=== PATIENT | female | born 1945 | race Caucasian/White ===

== ENCOUNTER → 2024-06-19 13:52 | Outpatient (REF) | payer MEDICARE, OTHER, SELFPAY | LOC: RAD 13:52 | PROVIDERS: ATTENDING PHYSICIAN Physician Assistant; FAMILY PHYSICIAN Family Medicine | DX: I65.23 Occlusion and stenosis of bilateral carotid arteries (principal) | CPT/HCPCS: 93880 ==

== ENCOUNTER → 2024-07-27 09:16 | Outpatient (REF) | payer MEDICARE, OTHER, SELFPAY | LOC: HWRCS 09:16 | PROVIDERS: ATTENDING PHYSICIAN Nurse Practitioner Gerontology; FAMILY PHYSICIAN Family Medicine | DX: R00.2 Palpitations (principal) | CPT/HCPCS: 93306 ==

== ENCOUNTER → 2024-08-02 06:19 | Day surgery (SDC) | payer MEDICARE, OTHER, SELFPAY | LOC: GI 06:19 | PROVIDERS: ATTENDING PHYSICIAN Internal Medicine Gastroenterology | DX: D12.2 Benign neoplasm of ascending colon (principal); K63.5 Polyp of colon; K64.8 Other hemorrhoids; Q43.8 Other specified congenital malformations of intestine; Z86.010 Personal history of colon polyps | CPT/HCPCS: 45380; 88305 ==

== ENCOUNTER 2024-08-08 07:10 | Day surgery (SDC) | payer MEDICARE, OTHER, SELFPAY | END 2024-08-08 08:58 | disposition home or self-care (01) | LOC: CATH 07:10 | PROVIDERS: ATTENDING PHYSICIAN Internal Medicine; FAMILY PHYSICIAN Family Medicine; OTHER PHYSICIAN Internal Medicine Cardiovascular Disease | DX: I08.1 Rheumatic disorders of both mitral and tricuspid valves (principal); I10 Essential (primary) hypertension; E78.00 Pure hypercholesterolemia, unspecified; E03.9 Hypothyroidism, unspecified; Z79.82 Long term (current) use of aspirin; Z87.891 Personal history of nicotine dependence | CPT/HCPCS: 93312; 93320; 93325 ==

== ENCOUNTER 2024-09-20 10:36 | Day surgery (SDC) | payer MEDICARE, OTHER, SELFPAY ==
[2024-09-20] VITALS (9 sets, daily range): BP systolic 96–149; BP diastolic 54–90; BMI 26.4
[2024-09-20 12:52] LABS: ACT-LR - POC 277 Seconds (116-155)
--- NOTE | 2024-09-21 18:27 | ITS.CL.CATH ---
End Lathe Operator - Catheterization
Cardiac Catheterization
Procedure Report:
CARDIAC CATHETERIZATION REPORT
Date of Procedure: 09/20/24
Referring: Dr. Abdirahman Flores
Indication: severe mitral regurgitation
PROCEDURE:
1. Right heart catheterization.
2. Left heart catheterization.
3. Coronary angiography.
4. iFR of LAD
ACCESS:
6 [place] right radial artery.
5 [place] right antecubital vein.
CATHETERS:
1. 6 [place]
2. 6 [place] JL3.5
3. 6 [place] JR4.
4. 6 [place] XB3.5 guide
HEMODYNAMIC DATA
LV 15/10 (EDP 18) mmHg
AO 150/78 (mean 110) mmHg
RA 6 mmHg
RV 28/5 (EDP 8) mmHg
PA 33/11 (mean 20) mmHg
PCWP 10 mmHg
CO/CI 5.1/3.0 L/min/m2
PVR 2.0 Wood units
SVR 1637 dsc*-5
CORONARY ANGIOGRAPHY
Dominance: right
LM: large and normal
LAD: large vessel giving rise to a moderate caliber branching D1 and small D2. There are serial moderate stenoses in the proximal LAD that were interrogated by iFR/FFR.
LCx: moderate caliber vessel giving rise to two moderate caliber OM branches. There is mild non-obstructive disease.
RCA: large vessel giving rise to a moderate caliber RPDA, large RPL1, and small RPL2. There is mild non-obstructive disease.
iFR/FFR of LAD
iFR was performed of the mid-LAD with an Omni pressure wire through a XB3.5 guide catheter. iFR was was borderline at 0.89 with normalization to 1.0 on pullback. FFR was then performed and was negative (0.86) with normalization to 1.0 on pullback.
Thus, the lesion was determined to be physiologically non-significant.
Closure Device: TR band
Radiation dose (mGy): 274.45
DAP (cm2.Gy): 17.28
Fluoroscopy time (minutes): 7.2
CONCLUSIONS:
1. Stable single vessel coronary artery disease in a right dominant system with FFR negative proximal LAD (FFR=0.86, unchanged from 2009)
2. Normal biventricular filling pressures, normal pulmonary artery pressure, normal cardiac output, and no aortic stenosis
RECOMMENDATIONS:
1. Expectant management after cardiac catheterization via right approach.
2. Proceed with surgical MRV without need for coronary revascularization. Should LAD revascularization be needed in the future this could be accomplished percutaneously.
Copy to: Abdirahman Flores MD
Signed: Sudhir Evans MD, PhD
== END 2024-09-20 17:00 | disposition home or self-care (01) ==
LOC: CATH 10:36
PROVIDERS: ATTENDING PHYSICIAN Student in an Organized Health Care Education/Training Program; FAMILY PHYSICIAN Family Medicine; OTHER PHYSICIAN Internal Medicine
DX: I25.10 Atherosclerotic heart disease of native coronary artery without angina pectoris (principal); Z79.82 Long term (current) use of aspirin; Z79.890 Hormone replacement therapy; Z79.899 Other long term (current) drug therapy; I34.0 Nonrheumatic mitral (valve) insufficiency; I10 Essential (primary) hypertension; R73.03 Prediabetes
CPT/HCPCS: 93799; 85347; 93460; C1769; C1887; C1894; J0153; Q9967

== ENCOUNTER → 2024-09-28 07:50 | Outpatient (REF) | payer MEDICARE, OTHER, SELFPAY | LOC: HWRAD 07:50 | PROVIDERS: ATTENDING PHYSICIAN Thoracic Surgery (Cardiothoracic Vascular Surgery); FAMILY PHYSICIAN Family Medicine | DX: I34.0 Nonrheumatic mitral (valve) insufficiency (principal); Z01.810 Encounter for preprocedural cardiovascular examination | CPT/HCPCS: 71275; 74174; Q9967 ==

== ENCOUNTER 2024-10-16 04:52 | Inpatient (IN) | payer MEDICARE, OTHER, SELFPAY ==
[2024-09-17 08:29] VITALS: BMI 24.9
[2024-09-17 09:07] LABS: % Eosinophils 5.4 % (0-6); % Immature Granulocytes 0.3 % (0-0.5); % Lymphocytes 37.8 % (20.5-51.1); % Monocytes 11.4 % (1.7-9.3); % Neutrophils 44.1 % (42.2-75.2); Absolute Basophils 0.1 10^3/uL (0-0.2); Absolute Eosinophils 0.3 10^3/uL (0-0.7); Absolute Lymphocytes 2.2 10^3/uL (1.2-3.4); Absolute Monocytes 0.7 10^3/uL (0.1-0.6); Absolute Neutrophils 2.6 10^3/uL (1.4-6.5); Hematocrit 40.5 % (37.0-47.0); Hemoglobin 13.5 g/dL (12.0-16.0); Mean Corp Hgb Conc. 33.3 g/dL (33.0-37.0); Mean Corpuscular Hgb 30.5 pg (27.0-31.0); Mean Corpuscular Volume 91.4 fL (81.0-99.0); Mean Platelet Volume 9.8 fL (7.4-10.4); Nucleated Red Blood Cells % 0 %; Platelet Count 222 10^3/uL (130-400); Red Blood Cell Count 4.43 10^6/uL (4.20-5.40); White Blood Cell Count 5.9 10^3/uL (4.8-10.8)
[2024-09-17 09:08] LABS: INR 1.01; PT 13.1 Sec (11.4-14.6)
[2024-09-17 09:09] LABS: APTT 29.5 Sec (23.4-35.0)
[2024-09-17 09:17] LABS: ALT (SGPT) 24 U/L (0-35); AST (SGOT) 31 U/L (14-36); Albumin 4.2 g/dl (3.5-5.0); Alkaline Phosphatase 100 U/L (38-126); Blood Urea Nitrogen 23 mg/dl (7-17); Calcium 10.7 mg/dl (8.4-10.2); Carbon Dioxide 29 mmol/L (22-30); Chloride 102 mmol/L (98-107); Direct Bilirubin 0.1 mg/dl (0.0-0.4); Estimated Creatinine Clearance 46 ml/min; Glucose 109 mg/dl (70-99); Potassium 4.5 mmol/L (3.5-5.1); Sodium 141 mmol/L (135-145); Total Bilirubin 0.6 mg/dl (0.2-1.3); Total Protein 6.8 g/dl (6.3-8.2); eGFR > 60.00
[2024-09-17 10:06] LABS: Glycohemoglobin (HgbA1c) 5.7 % (4.0-5.6)
--- NOTE | 2024-09-17 10:14 | CM ---
Met with and Mrs. Kumar in [facility]. She states prior to admission she resides with her spouse in a two story home with one step to enter. She states she has a full flight of steps to get to bedroom/full bathroom. She states she has a powder
room on the first floor. She states prior to admission she was independent with ambulation and adls. She states she does not have any DME in the home. She states she has a prescription plan. She states her spouse will be home to assist in her care
if needed. The discharge plan is to return home with her spouse when medically stable.
We reviewed pre-op and post-op routines. We reviewed the shower instructions. She has the soap, written instructions and the Cardiothoracic Surgery Educational Booklet. We also reviewed restrictions including driving and lifting restrictions. We
discussed a home visit by the Transitional Care Nurse. She is agreeable to a home visit. The plan is for [facility] Repair on 10/16/2024.
[2024-09-17 10:30] LABS: Urine Albumin Negative (Neg - Trace); Urine Bilirubin Negative (Negative); Urine Character Clear (Clear); Urine Color Yellow; Urine Glucose Negative (Negative); Urine Ketone Negative (Negative); Urine Leukocyte Negative (Negative); Urine Nitrite Negative (Negative); Urine Occult Blood Negative (Negative); Urine Specific Gravity 1.015 (<1.030); Urine Urobilinogen Negative (Neg - 1+)
[2024-10-16] VITALS (14 sets, daily range): BP systolic 90–169; BP diastolic 55–85; BMI 24.3
[2024-10-16] MEDS: BACTROBAN 2% OINTMENT 1 APPLIC NASAL ×2 (05:19→20:15)
[2024-10-16] MEDS: LOPRESSOR 25 MG PO (05:19)
[2024-10-16] MEDS: PROTONIX 40 MG PO (05:20)
[2024-10-16] MEDS: MAGNESIUM OXIDE 500 MG PO (05:20)
--- NOTE | 2024-10-16 06:19 | PTCARENOTE ---
Patient escorted onto unit at 0450. Endorsed feelings of anxiety; questions encouraged, therapeutic communication utilized to attempt to assuage concerns. Patient AOx3, VS as listed in the chart, height and weight obtained, patient changed into gown
and surgical sites clipped. Patient washed with CHG wipes and settled in bed. Medications reconciled in chart, allergies confirmed. Family at bedside, call aggarwal within reach. Awaiting CVOR call.
--- NOTE | 2024-10-16 07:08 | W.CVOR.SURPR ---
CVOR Surgeon Immed Pre Op
-
I have examined this patient prior to performance of the scheduled procedure.
The patient's condition is unchanged from the time of the dictated/written History and
Physical and the patient is able to undergo the scheduled procedure.
MV Repair +/- LITO Clip
[2024-10-16 07:17] LABS: ACT+ - POC 98 Seconds (82-134)
[2024-10-16 08:12] LABS: Urine Albumin Negative (Neg - Trace); Urine Bilirubin Negative (Negative); Urine Character Clear (Clear); Urine Color Yellow; Urine Glucose Negative (Negative); Urine Ketone Negative (Negative); Urine Leukocyte Negative (Negative); Urine Nitrite Negative (Negative); Urine Occult Blood Negative (Negative); Urine Urobilinogen Negative (Neg - 1+)
[2024-10-16 09:05] LABS: ACT+ - POC 834 Seconds (82-134)
[2024-10-16 09:29] LABS: B.E. - POC 1.8 mmol/L; Glucose - POC 128 mg/dl (70-99); HCO3 - POC 30 mmol/L (21-28); Hematocrit - POC 37 % PCV (37-47); Hemodilution- POC Yes; Hemoglobin Calculated - POC 12.4; Ionized Calcium - POC 1.38 mmol/L (1.15-1.33); O2 Saturation %Calculated-POC 99.9 % (94-98); PCO2 - POC 62 mmHg (35-48); PO2 - POC 307 mmHg (83-108); POC Comment PRE; Potassium - POC 4.2 mmol/L (3.5-5.1); Sodium - POC 142 mmol/L (136-145); pH - POC 7.29 (7.35-7.45)
[2024-10-16 10:00] LABS: B.E. - POC 3.9 mmol/L; Glucose - POC 129 mg/dl (70-99); HCO3 - POC 30 mmol/L (21-28); Hematocrit - POC 28 % PCV (37-47); Hemodilution- POC Yes; Hemoglobin Calculated - POC 9.6; Ionized Calcium - POC 1.08 mmol/L (1.15-1.33); O2 Saturation %Calculated-POC 99.9 % (94-98); PCO2 - POC 49 mmHg (35-48); PO2 - POC 331 mmHg (83-108); POC Comment CPB; Potassium - POC 5.1 mmol/L (3.5-5.1); Sodium - POC 139 mmol/L (136-145); pH - POC 7.39 (7.35-7.45)
[2024-10-16 10:16] LABS: ACT+ - POC 837 Seconds (82-134)
[2024-10-16 10:19] LABS: B.E. - POC 3.1 mmol/L; Glucose - POC 165 mg/dl (70-99); HCO3 - POC 28 mmol/L (21-28); Hematocrit - POC 31 % PCV (37-47); Hemodilution- POC Yes; Hemoglobin Calculated - POC 10.5; Ionized Calcium - POC 1.17 mmol/L (1.15-1.33); O2 Saturation %Calculated-POC 99.8 % (94-98); PCO2 - POC 46 mmHg (35-48); PO2 - POC 251 mmHg (83-108); POC Comment CPB; Potassium - POC 4.5 mmol/L (3.5-5.1); Sodium - POC 141 mmol/L (136-145)
[2024-10-16 10:32] LABS: ACT+ - POC 725 Seconds (82-134)
[2024-10-16 10:55] LABS: B.E. - POC 1.1 mmol/L; Glucose - POC 163 mg/dl (70-99); HCO3 - POC 25 mmol/L (21-28); Hematocrit - POC 33 % PCV (37-47); Hemodilution- POC Yes; Hemoglobin Calculated - POC 11.2; Ionized Calcium - POC 1.16 mmol/L (1.15-1.33); O2 Saturation %Calculated-POC 99.9 % (94-98); PCO2 - POC 34 mmHg (35-48); PO2 - POC 328 mmHg (83-108); POC Comment WARM; Potassium - POC 3.7 mmol/L (3.5-5.1); Sodium - POC 143 mmol/L (136-145); pH - POC 7.47 (7.35-7.45)
[2024-10-16 11:01] LABS: B.E. - POC -0.4 mmol/L; Glucose - POC 97 mg/dl (70-99); HCO3 - POC 24 mmol/L (21-28); Hematocrit - POC 31 % PCV (37-47); Hemodilution- POC Yes; Hemoglobin Calculated - POC 10.4; Ionized Calcium - POC 1.48 mmol/L (1.15-1.33); O2 Saturation %Calculated-POC 99.5 % (94-98); PCO2 - POC 36 mmHg (35-48); PO2 - POC 162 mmHg (83-108); Potassium - POC 3.1 mmol/L (3.5-5.1); Sodium - POC 144 mmol/L (136-145); pH - POC 7.43 (7.35-7.45)
[2024-10-16 11:01] LABS: ACT+ - POC 129 Seconds (82-134)
[2024-10-16 11:05] LABS: B.E. - POC -0.2 mmol/L; Glucose - POC 93 mg/dl (70-99); HCO3 - POC 24 mmol/L (21-28); Hematocrit - POC 30 % PCV (37-47); Hemodilution- POC Yes; Hemoglobin Calculated - POC 10.3; Ionized Calcium - POC 1.43 mmol/L (1.15-1.33); O2 Saturation %Calculated-POC 99.6 % (94-98); PCO2 - POC 35 mmHg (35-48); PO2 - POC 168 mmHg (83-108); POC Comment POST; Potassium - POC 3.1 mmol/L (3.5-5.1); Sodium - POC 145 mmol/L (136-145); pH - POC 7.44 (7.35-7.45)
--- NOTE | 2024-10-16 11:39 | W.PN.CT.SURG ---
Addendum entered and electronically signed by Abdirahman Flores MD 10/16/24 12:26:
Procedure(s) Performed:
1. Right mini thoracotomy with percutaneous ultrasound-guided right common femoral artery and vein cannulation under MECHELLE guidance
2. Radical mitral valve repair (32 mm ring annuloplasty, reapproximation of A2 onto A3 with free margin plication using 5-0 Prolene)
3. Placement temporary ventricular pacing wires
4. Trans esophageal echocardiography
5. Left femoral cut down, aborted use of this groin
6. Left atrial appendage exclusion (35mm clip)
Original Note:
CT Surgery Operative Note
-
CARDIAC SURGERY OPERATIVE REPORT
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
Postoperative Diagnosis: Same, large cleft between A2 A3, almost a trileaflet configuration and dilated annulus
Procedure(s) Performed:
1. Right mini thoracotomy with percutaneous ultrasound-guided right common femoral artery and vein cannulation under MECHELLE guidance
2. Radical mitral valve repair (32 mm ring annuloplasty, reapproximation of A2 onto A3 with free margin plication using 5-0 Prolene)
3. Placement temporary ventricular pacing wires
4. Trans esophageal echocardiography
5. Left femoral cut down, aborted use of this groin
Date of Surgery: 10/16/24
Comorbidities:
1. 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
2. Hyperlipidemia
3. Hypothyroidism
4. History of constipation
5. History of malignant melanoma on the right toe
6. Lymphedema
7. History of carotid stenosis
8. hypertension
9. Single-vessel CAD, stable
10. Osteopenia
11. Palpitations
Attending Surgeon: Abdirahman Flores MD, MS
Assistants: Alexandro Ghosh PA-C (present and necessary for retraction, suctioning, exposure, suture management, wound closure, etc. under my direction)
Anesthesiology: De Ventura MD and Malik Olvera CRNA
Scrub and Circulating RNs: Garret Sullivan RN, Meera Joyce RN
Assistant Associate Full Professor: Tammy Starr CCP
Anesthesia: GETA
EBL: per perfusion records
Products: None
CPB Time: 88 minutes
Aortic Cross Clamp Time: 64 minutes
Indication(s) for Procedures: This is a 78-year-old female with severe mitral valve insufficiency past progressed over the years. She now has become symptomatic with intermittent palpitations and occasional lightheadedness. She was otherwise
active and totally independent. Left heart cath demonstrated stable single-vessel CAD at the proximal to mid LAD not out of bifurcation. Given her subtle symptoms and new onset palpitations, I believe she met stage C symptomatology and therefore
met a class II a bordering class I indication for mitral valve repair. Given her history of palpitations, she wore a Holter monitor which did not demonstrate any atrial relation. Due to this, I opted to ligate her left atrial appendage if it was
easily visible during her surgery.
Mitral Valve Description: Abnormal appearing mitral valve, short anterior leaflet, long posterior leaflet. Large cleft between A2 and A3 with almost a trileaflet configuration of the valve. Annulus was dilated in the AP and trigone trigonal
dimensions. There is evidence of bileaflet prolapse and splaying of the leaflets.
Implants:
1. 32 mm Álvarez annuloplasty ring, SN [id number]
2. Percutaneous closure of the groin using Perclose x 2, SN [id number]
3. Left atrial appendage exclusion with a 35 mm clip, serial #[id number]
Specimen:
1. None
Findings: Her left ventricular ejection fraction preoperatively was 60 to 65%. Following surgery her EF remained the same at 60 to 65% with no new regional wall motion abnormalities. I initially attempted to cut down on the left groin however her
tissue was extremely friable and after placement of pursestring sutures, there was an adventitial hematoma. After decompressing it, and attempting to place a wire, the wire would not thread easily and so I aborted using this groin. Ultrasound and
micropuncture using Seldinger technique was used to access the right common femoral artery and vein. A 5 [place] sheath was placed into the right common femoral vein and 2 Perclose devices were used after dilating the tract to 8 [place] for the
common femoral artery. Her mitral valve was abnormal in appearance with almost a trileaflet configuration. There is bileaflet prolapse with a large cleft between A2 and A3. The annulus was dilated. Corresponding to the preoperative MECHELLE, her
anterior leaflet was quite short with a very tall posterior leaflet. I reapproximated a 2 onto a 3 using multiple interrupted 5-0 Prolene sutures. I then plicated to free margin in order to promote a downward parachuting effect. A total of 12
nonpledgeted 2 Ethibond sutures were placed circumferentially around the valve which was then sized to a 32 mm ring. This was secured with core knots. Dynamic inflation of the left ventricle with pressurization of the root demonstrated a competent
mitral valve. Ink test of the coaptation margin demonstrated a relatively posterior coaptation line in appropriate height. After coming off cardiopulmonary bypass, there is no residual mitral valve deficiency, may be trace in some views. There is
no systolic anterior motion the leaflets and a mean gradient of 2 across the valve. She did not require any blood products or inotropic support. She regained sinus rhythm after short period of ventricular pacing. There was some difficulty with
intubation using a double-lumen tube and positioning of it. Due to this, we elected to leave her intubated following surgery in the event that there was any swelling of her airway. Her left atrial appendage was verified to be free of any thrombus
or debris preoperatively and found to be totally occlusive postoperatively.
Description of Procedure: The patient was brought to the operating room and placed supine in the table with their right side bumped up and right arm down. Arterial and central access was performed by anesthesiology. The patient was prepped from chin
to toes in the typical sterile fashion. Trans esophageal evaluation of cardiac function and all valvular structures was conducted. Before commencing, a time out was performed by all members of the team. All were in agreement with the procedure and
laterality and I proceeded. A small left groin incision was made to expose the common femoral artery however this was aborted. Next ultrasound was used to access the right common femoral vessels using Seldinger technique with a micropuncture. I
placed a 5 [place] sheath into the common femoral vein and then to Perclose devices of the right common femoral artery after dilating with an 8 [place] sheath. A total of 35,000 units of heparin was given. A 5-6 cm right lateral thoracotomy was
performed over the 4th intercostal space verified by visualization of the hilum. The common femoral artery and vein were cannulated under transesophageal guidance using Seldinger technique and serial dilations. The arterial line was verified to have
an appropriate bounce and pressure correlating with testing. Once the ACT was above 400, retrograde autologous priming was done and we commenced cardiopulmonary bypass. Target core temperature was 34�C.
Carbon dioxide was used to flood the field. The course of the phrenic nerve was identified to prevent injury. The pericardium was opened and two stay sutures were placed to facilitate a ``pericardial table.�� The oblique sinus was developed followed
by the inter atrial groove. An antegrade root vent was inserted and secured with a pursestring suture. The pump flow and mean arterial pressure were lowered and an aortic cross clamp was applied to the ascending aorta. A total of 1.2L initial dose
of Antegrade cardioplegia was delivered. We had rapid electro myocardial quiescence at 300 cc of cardioplegia. The ventricle was monitored for distension by echocardiogram during this time. The left atrium was incised and enlarged. A left atrial
lift retractor was placed. The mitral valve was inspected. The mitral valve was repaired as described above. The left atrial lift was then removed and the left atrial appendage was accessed via the transverse sinus. This was sized to a 35 mm clip
which was deployed flush to the base. The left atriotomy was closed with 3-0 prolene in a running fashion leaving a ventricular vent in place to de-air. After filling the heart, the vent was removed and the prolene was secured with a corknot.
Unipolar ventricular pacing wire was placed on the base of the right ventricle. The patient was placed into Trendelenburg position and pump flows were lowered. The clamp was slowly removed with the root vent turned on. De-airing maneuvers were
performed. We started to rewarm with a target of 36.5�C.
As the heart recovered, the mitral valve and ventricular function were assessed under transesophageal echocardiogram. The root vents were removed. Once weaning parameters were satisfactory, cardiopulmonary bypass flow was lowered until we were off
cardiopulmonary bypass the mitral valve was inspected again. All surgical sites were inspected for hemostasis and appeared appropriate. The lines were clamped and the arterial was relocated to the venous cannula to give back volume. A test dose of
protamine was delivered and patient was monitored for any adverse reactions followed by complete protamine dosing. The femoral vessels were decannulated and the Perclose was snugged down on the arterial side and a large skin stitch was placed over
the femoral venous side. The pericardium was approximated with 2-0 ethibond sutures secured with corknots. One 19F Az drain remained in the pleural space and threaded into the pericardium. There was an excellent palpable distal to the 911 DISPATCHER
cannulation site and bilateral DP pulses on her feet. Local analgesia was injected to the thoracotomy. The incision was closed in layers in a running fashion.
All instrument, sponge, and needle counts were confirmed to be correct x 2 at the end of the operation. The patient was transferred to the cardiac intensive care unit in critical but stable condition.
I, Dr. Abdirahman Flores, was present, scrubbed for, and performed all critical elements of this procedure.
Abdirahman Flores MD, MS
Cardiothoracic Surgeon
[facility]
This dictation was created using the [employer] dictation system. Please excuse any grammatical, typographical, or 'sound alike' errors
--- NOTE | 2024-10-16 11:40 | CON.INTV ---
Consultation
Consultation Request
Date/Time Consultation Requested: 10/16/2020 4-12 noon
Date/Time Consultation Performed: 10/16/2024-12:30 PM
Requesting Provider: Cardiovascular surgery
Performing Provider: Dr. Nagel
Reason for Consultation: Postoperative ventilator/critical care management
Medical History
-
Chief Complaint: Mitral regurgitation
History of Present Illness:
78-year-old female with a history of hyperlipidemia, hypothyroid, lymphedema, hypertension and stable single-vessel CAD who had myxomatous mitral valve degeneration with severe insufficiency and underwent radical mitral valve repair-barrel turner
consulted for postoperative ventilator/critical care management 10/16/2024. The patient is intubated and review of systems is unobtainable. Operative records were reviewed. No blood products were needed. Patient is not on any pressors.
Past Medical History
Past Medical History: None (Hypertension. Hyperlipoidemia. Hypothyroid. Constipation. Malignant melanoma. HIT-nciuxz-jrpuph. Severe mitral insufficiency. Osteopenia. Diverticulosis. Prediabetes. Anxiety.)
Past Surgical History: None (Right great toe amputation for melanoma 2004. Oophorectomy 2002. Right lower extremity vein stripping 2021. Right carotid endarterectomy 2017. Bilateral cataract 2017. Blepharoplasty 2018.)
Social History
Tobacco: Former Smoker
Alcohol: Occasional
Drug: None
Personal:
Living: With Family
Employment: Retired
Occupational Exposures: No known asbestos exposure
Environmental Exposures: No known tuberculosis exposure
Family History
Family History: Other (Father-CAD. Mother-CAD. Brother-CVA.)
Allergies / Home Medications
Allergies
Allergy/AdvReac Type Severity Reaction Status Date / Time
adhesive Allergy ERYTHEMA/RA Verified 09/20/24 10:53
SH/ITCHING
Home Medications
�Medication �Instructions �Recorded �Confirmed �Last Taken �Type
levothyroxine 112 mcg tablet 112 mcg PO DAILY 12/09/17 10/16/24 10/15/24 08:00 History
aspirin 81 mg tablet,delayed 81 mg PO DAILY ##0 12/15/17 10/16/24 10/15/24 08:00 Rx
release
alprazolam 0.5 mg tablet 0.25 mg PO Q8H PRN flying 08/08/24 09/20/24 3 Months Ago History
~05/08/24
olmesartan 20 mg tablet 20 mg PO DAILY 08/08/24 10/16/24 10/13/24 08:00 History
acetaminophen 500 mg tablet 500 mg PO Q6H PRN pain 09/12/24 09/20/24 Unknown History
atorvastatin 40 mg tablet 40 mg PO HS 09/12/24 10/16/24 10/15/24 20:00 History
calcium carbonate 1,000 mg PO HS 09/12/24 10/16/24 10/15/24 20:00 History
omeprazole 20 mg tablet,delayed 20 mg PO HS 09/12/24 10/16/24 10/15/24 18:30 History
release
melatonin 5 mg sublingual tablet 5 mg sublingual HS PRN insomnia 09/20/24 10/16/24 10/15/24 21:30 History
Review of Systems
-
Unable to Obtain full review of systems at this time due to: Other (Per HPI)
Vitals / Labs / Diagnostic Testing
Vital Signs
Pulse BP Pulse Ox
90 149/82 96
10/16/24 05:19 10/16/24 05:19 10/16/24 05:00
Diagnostic Testing:
Physical Exam
-
Exam:
Well-nourished and well-developed in no apparent distress
HEENT-atraumatic, normocephalic, oral tracheal intubation
Heart-regular rate and rhythm-no murmurs, rubs or gallops
Chest-clear to auscultation, no wheezes, crackles, median sternotomy bandage is not removed
Abdomen soft nondistended
Extremities-no cyanosis, clubbing, edema and good peripheral pulses
Integument-intact, no rashes, lesions or ecchymosis
Neurologically not alert, not oriented, not moving any of his extremities sedated on a ventilator
Assessment
-
78-year-old female with a history of hyperlipidemia, hypothyroid, lymphedema, hypertension and stable single-vessel CAD who had myxomatous mitral valve degeneration with severe insufficiency and underwent radical mitral valve repair-barrel turner
consulted for postoperative ventilator/critical care management 10/16/2024.
Severe mitral insufficiency symptomatic
Status post right minithoracotomy, radical mitral valve repair-Dr. Flores 10/16/2024
Mild anemia
Mild hyperglycemia
Conditions present prior to admission:
Hypertension.
Hyperlipoidemia.
Hypothyroid.
Constipation.
Malignant melanoma.
NEL-gyqrae-wnjxsu.
Severe mitral insufficiency.
Osteopenia.
Diverticulosis.
Prediabetes.
Anxiety.
Right great toe amputation for melanoma 2004. Oophorectomy 2002. Right lower extremity vein stripping 2021. Right carotid endarterectomy 2017. Bilateral cataract 2018. Blepharoplasty 2019.
Plan
Ventilator settings reviewed
FiO2 will be weaned
Minute ventilation will be adjusted
Arterial blood gases will be monitored
Spontaneous breathing trial will be attempted with hopeful extubation after anesthesia/sedation wear off
Pulmonary artery catheter parameters will be followed
Pressors/antihypertensive/inotropes/diuretics will be provided as needed
Monitor chest tube output
Monitor hemoglobin
Monitor platelet count and coags
Transfuse blood product if needed
CT surgery following chest tubes
Monitor blood sugar
Insulin drip per protocol
Aspiration precautions
VAP prevention protocol
DVT prophylaxis
Early nutrition
Early mobilization
Critical care statement: A total of 50 minutes of critical care time was provided for this patient today. This includes management of ventilator, spontaneous breathing trial, arterial blood gases, pressors, of unstable vital signs, evaluation of the
patient at bedside, reviewing the patient's pertinent medical records including radiographs, microbiology, laboratory evaluations, and discussion with primary team and critical care nursing.
Diagnostic data:
Chest x-ray 10/16/2024-no pneumothorax, mild bibasilar opacifications compatible with subsegmental atelectasis
Cardiac catheterization 09/16/2024-stable single-vessel CAD, known normal biventricular filling pressures, normal cardiac output and no aortic stenosis
Transesophageal echocardiogram 10/16/2024-moderate mitral regurgitation, no thrombus or mass
Data Reviewed
-
PFT: Report reviewed by me
EKG: Report reviewed by me
Radiology: Report reviewed by me
Medical Tests (Nuc Med, Echo etc): Report reviewed by me
Labs: Labs reviewed by me
Old Records: Reviewed
Critical Care Time (in minutes): 50
--- NOTE | 2024-10-16 11:52 | W.PN.UPDATE ---
Addendum entered and electronically signed by MARY Haile 10/16/24 12:33:
2 VENTRICULAR wires
Original Note:
Update Note
Progress Note Update
78 year old female electively admitted for mitral repair due to myxomatous degeneration of the mitral valve with bileaflet prolapse and severe insufficiency.
IV fluids: 1300
U.O.:� 600
Blood:� none
Wires:� 2 atrial wires
Inotropes:� none
Pressors:� none-Levophed off on arrival to CVICU
Sedatives:� Precedex @ 0.6
�
NEURO: sedated on Precedex, pupils +2mm B/L
RESP: #8OT @23cm> 500/60%/14/5. Lungs clear B/L. 2 mediastinal chest tubes to -20cm suction. Sanguineous drainage
CV: RRR +S1, S2, no S3, no�rub, no murmur. Dermabond to right thoracotomy. RIJ w/[place] locked @ 43cm. PA 30/16; CVP 5
ABD: round, soft, no BS
EXT: no edema, +2/4 DP pulses B/L, no femoral bruit, R femoral incision intact w/retention suture intact; left femoral incision intact. Left radial A-line intact
: Andujar with clear yellow urine
�
A/P: POD #0 s/p radical mitral valve repair (#32 mm ring annuloplasty, reapproximation of A2 onto A3 with free margin plication using 5-0 Prolene), left atrial appendage clip #35mm
Normal EF�pre-op
- difficult intubation, received steroid intra-op. No need to continue post-op.
- wean to 40% and extubate
- will need instruction regarding antibiotic prophylaxis for dental and invasive procedures
# CAD (moderate LAD stenosis)
- will continue ASA, statin, add beta-riley post-op�
�
# Pre-diabetes(A1C 5.7)
- insulin infusion x 24h
- not on diabetic meds at home
- trend blood sugars
# PAD s/p R CEA (patent by Carotid US)
�-continue statin
# HTN
- resume olmesartan when taking solids
# Hyperlipidemia
- resume�Lipitor
# Hypothyroidism
- resume Synthroid 112mcg daily when taking solids
[2024-10-16 11:54] LABS: ACT+ - POC > 1003 Seconds (82-134)
--- NOTE | 2024-10-16 12:00 | PTCARENOTE ---
pt from CVOR at 1140. intubated, sedated on precedex gtt. ETT 8.0, 22cm at the lip. R IJ cordis w/ swan floated to 46cm. L radial a-line. all lines leveled, zeroed, flushed. temp epicardial v-wires plugged into pacer, pulse generator off. Sr w/
occasional PVCs on tele-monitor. CTx1 (R pleural) to -20cm wall suction. no air leaks noted. calix catheter draining clear urine. PIV intact. labs drawn. EKG performed. see worklist for complete nursing assessment, interventions, VS, and I&Os.
[2024-10-16 12:11] LABS: Glucose - Point of Care 78 mg/dl (70-99)
[2024-10-16] MEDS: LACTATED RINGERS 250 ML IV ×3 (12:14→16:32)
[2024-10-16] MEDS: SYNTHROID PO (12:15)
[2024-10-16] MEDS: NEURONTIN PO ×2 (12:15→15:34)
[2024-10-16] MEDS: NSS 500 IV (12:15)
[2024-10-16 12:18] LABS: B.E. 0 mmol/L; HCO3 23.8 mmol/L (21-28); Ionized Calcium 1.32 mMOL/L (1.15-1.33); O2 Saturation % 98.1 % (94-98); PCO2 35 mmHg (32-35); PO2 82 mmHg (83-108); Potassium 3.7 mMOL/L (3.5-5.1); Sodium 140 mMOL/L (136-145); pH 7.44 (7.35-7.45)
[2024-10-16 12:20] LABS: Mixed Venous O2 Saturation 72.2 %
[2024-10-16 12:26] LABS: Hematocrit 35.6 % (37.0-47.0); Hemoglobin 11.6 g/dL (12.0-16.0); Platelet Count 138 10^3/uL (130-400)
[2024-10-16] MEDS: KCL 50 IV ×2 (12:33→13:37)
[2024-10-16 12:35] LABS: INR 1.45; PT 17.9 Sec (11.4-14.6)
[2024-10-16 12:36] LABS: APTT 30.2 Sec (23.4-35.0)
[2024-10-16 12:47] LABS: Blood Urea Nitrogen 19 mg/dl (7-17); Estimated Creatinine Clearance 59 ml/min; Glucose 82 mg/dl (70-99); Magnesium 2.8 mg/dl (1.6-2.3)
--- NOTE | 2024-10-16 12:54 | W.PN.CD ---
Addendum entered and electronically signed by Nii Peralta MD 10/16/24 16:41:
I saw and examined the patient.
The WATER PUMP INSTALLER's note was reviewed and I agree with the note.
Comment:
78F with hypertension, dyslipidemia, prediabetes, hypothyroidism and severe mitral regurgitation with bileaflet prolapse, s/p mitral valve repair 10/16/[address] Flores. She looks great. Is already extubated, sitting up and talking. Postoperative
ECG unchanged. Continue routine postoperative care per cardiac surgery. Resume home meds as tolerated.
Original Note:
Today's Communication / Plan
-
Follow telemetry
Impression / Plan
-
BACKGROUND: 78F with hypertension, dyslipidemia, prediabetes, hypothyroidism and severe mitral regurgitation with bileaflet prolapse presented for MVR.
Primary Erecting Engineer: Dr. Martinez
IMPRESSION/PLAN:
Severe mitral regurgitation with bileaflet prolapse status post radical mitral valve repair 10/16/[address] Flores
-32 mm ring annuloplasty, reapproximation of A2 onto a 3, and LITO number 35 mm clip
-Difficult intubation requiring steroids IntraOp
-Pre-LVEF 60-65%, unchanged postop without regional wall motion abnormality
-EKG with sinus rhythm and PVCs
-Follow telemetry
-Education regarding antibiotic therapy for dental and invasive procedures when she is extubated and awake
Hypertension, olmesartan on hold
Nonobstructive coronary artery disease, aspirin/statin/beta-riley postoperatively
Dyslipidemia, continue atorvastatin
PAD status post right CEA (2017), patent by carotid ultrasound, continue atorvastatin
Prediabetes, HgbA1c 5.7%
Hypothyroidism, on levothyroxine
SUBJECTIVE:
Operative note reviewed. Intubated and sedated on mechanical ventilation.
DATA:
Cardiac catheterization, 09/20/2024:
CONCLUSIONS:
1. Stable single vessel coronary artery disease in a right dominant system with FFR negative proximal LAD (FFR=0.86, unchanged from 2009)
2. Normal biventricular filling pressures, normal pulmonary artery pressure, normal cardiac output, and no aortic stenosis
Transesophageal echocardiogram, 08/08/2024:
CONCLUSIONS
Left ventricular ejection fraction is 60-65%. Normal regional wall motion.
Normal right ventricular size and function.
Mildly thickened mitral valve leaflets. Bileaflet mitral valve prolapse with
severe central mitral regurgitation.
Physical Exam
Vital Signs/Labs
Vital Signs
Temp Pulse Resp BP Pulse Ox
95.3 F L 76 0 98/67 99
10/16/24 12:00 10/16/24 12:45 10/16/24 12:30 10/16/24 12:21 10/16/24 12:45
10/15/24 10/16/24 10/17/24
06:59 06:59 06:59
Actual Weight 66.2 kg
10/16/24 12:09
PT 17.9 Sec (11.4-14.6) H 10/16/24 12:08
INR 1.45 10/16/24 12:08
APTT 30.2 Sec (23.4-35.0) 10/16/24 12:08
Magnesium 2.8 mg/dl (1.6-2.3) H 10/16/24 12:09
Physical Exam
Constitutional: No acute distress and Comfortable
EENT: Anicteric and Moist mucous membranes
Cardiovascular: Rhythm & rate is regular and Pedal edema is absent
Respiratory: Lungs clear to auscul.
GI: Soft and Distention absent
Neuro/Psych: Other (Opens eyes to voice)
Other: Skin (Warm and dry without edema)
Data Reviewed
-
Date of Service: October 16, 2024
EKG: Report Reviewed by me
Labs: Labs Reviewed by me
Old Records: Reviewed
[2024-10-16 13:05] LABS: Glucose - Point of Care 114 mg/dl (70-99)
[2024-10-16 14:04] LABS: Glucose - Point of Care 160 mg/dl (70-99)
[2024-10-16 14:59] LABS: Glucose - Point of Care 122 mg/dl (70-99)
[2024-10-16] MEDS: TYLENOL PO (15:30)
[2024-10-16] MEDS: ANCEF IV ×2 (15:31)
[2024-10-16] MEDS: ANCEF 10 IV ×2 (15:33)
[2024-10-16 15:55] LABS: B.E. -0.1 mmol/L; HCO3 25.4 mmol/L (21-28); O2 Saturation % 99.9 % (94-98); PCO2 44 mmHg (32-35); PO2 161 mmHg (83-108); Potassium 4.8 mMOL/L (3.5-5.1); pH 7.37 (7.35-7.45)
[2024-10-16 16:02] LABS: Hematocrit 35.5 % (37.0-47.0); Hemoglobin 11.6 g/dL (12.0-16.0); Platelet Count 155 10^3/uL (130-400)
[2024-10-16] MEDS: ZOFRAN 4 MG IV (16:09)
[2024-10-16 16:13] LABS: Glucose - Point of Care 130 mg/dl (70-99)
--- NOTE | 2024-10-16 16:15 | PTCARENOTE ---
pt extubated at 1605. 6 L NC, POX 99%. IS to 500ml achieved. pt oriented x4. nausea post extubation, see MAR for med details.
--- NOTE | 2024-10-16 16:29 | CM ---
pt in OR today, cm to follow.
[2024-10-16] MEDS: FLEXERIL 5 MG PO (17:21)
[2024-10-16] MEDS: TYLENOL 650 MG PO (17:21)
[2024-10-16] MEDS: LOW STRENGTH ASPIRIN 81 MG PO (17:21)
[2024-10-16] MEDS: PACERONE PO (17:22)
[2024-10-16 18:12] LABS: Glucose - Point of Care 102 mg/dl (70-99)
[2024-10-16] MEDS: ALBUMIN 5% 250 IV ×2 (19:02→21:14)
--- NOTE | 2024-10-16 19:02 | PTCARENOTE ---
Pt CI 1.62. CVP 5, CTPA notified, Albumin gtt started. (see MAR)
[2024-10-16] MEDS: ROXICODONE 2.5 MG PO (19:04)
--- NOTE | 2024-10-16 19:28 | PTCARENOTE ---
Received pt from [facility]. Walking rounds completed. Pt is AAOx4, No neuro deficits noted. NSR on monitor. HR:57, B/P: 93/55. V-wires present but off. Cordis intact, no redness or edema noted, Salix at 42. A-lined zeroed and calibrated. CO: 2.80. CI:
1.62, pulses palpable, negative edema. Lungs clear, diminished in bases. 6L NC POX 100%. R pleural CT intact, draining serosanguineous fluid WNL. Andujar intact, draining clear, yellow fluid. Hypoactive BS, abdomen soft, nontender to touch. R chest
incision, approx., surgical glue present. L femoral incision, approx., surgical glue present. R femoral incision retention suture present. Discussed plan of care with pt, pt agrees with plan. Will continue to monitor pt. needs.
[2024-10-16 20:01] LABS: B.E. -0.5 mmol/L; HCO3 24.9 mmol/L (21-28); Ionized Calcium 1.28 mMOL/L (1.15-1.33); O2 Saturation % 99.3 % (94-98); PCO2 43 mmHg (32-35); PO2 108 mmHg (83-108); Potassium 5.4 mMOL/L (3.5-5.1); pH 7.37 (7.35-7.45)
[2024-10-16 20:11] LABS: Mixed Venous O2 Saturation 57.4 %
[2024-10-16] MEDS: ANCEF 5 IV (20:14)
[2024-10-16] MEDS: SENOKOT-S 1 TABLET PO (20:15)
[2024-10-16 20:25] LABS: Glucose - Point of Care 99 mg/dl (70-99)
[2024-10-16 21:16] LABS: Potassium 5.3 mmol/L (3.5-5.1)
[2024-10-16] MEDS: DEXTROSE 50% SYRINGE 25 GRAMS IV (21:28)
[2024-10-16] MEDS: NOVOLIN R 10 UNITS IV (21:29)
[2024-10-16 21:32] LABS: Glucose - Point of Care 120 mg/dl (70-99)
[2024-10-16 21:44] LABS: Glucose - Point of Care 213 mg/dl (70-99)
[2024-10-16 22:18] LABS: Glucose - Point of Care 219 mg/dl (70-99)
[2024-10-16] MEDS: TYLENOL 1000 MG PO (22:21)
[2024-10-16] MEDS: NEURONTIN 100 MG PO (22:21)
[2024-10-16] MEDS: LIPITOR 40 MG PO (22:21)
[2024-10-16] MEDS: OSCAL CAL 500 PO (22:21)
[2024-10-16 23:07] LABS: Potassium 4.1 mmol/L (3.5-5.1)
[2024-10-16 23:09] LABS: Glucose - Point of Care 173 mg/dl (70-99)
--- NOTE | 2024-10-16 23:13 | PTCARENOTE ---
VSS. NSR with occasional PVC's on monitor. K+ 5.4, CTPA Svitlana notified. 50 dextrose and insulin IV ordered (see MAR). Pt tolerated meds. repeat K+ sent. K+ 4.1. Pt resting in bed. Will continue to assess pt needs.
[2024-10-17] VITALS (25 sets, daily range): BP systolic 98–116; BP diastolic 51–94; PULSE 70–75; O2SAT 95–96; BMI 25.4
[2024-10-17 00:34] LABS: Mixed Venous O2 Saturation 72.2 %
[2024-10-17] MEDS: ALBUMIN 5% 250 IV (00:50)
[2024-10-17 00:57] LABS: Glucose - Point of Care 115 mg/dl (70-99)
--- NOTE | 2024-10-17 01:30 | PTCARENOTE ---
Pt in NSR with occasional PVC's on the monitor. Mixed venous sent. CTPA Tslina notified of results. Per Dr. Flores additional Albumin ordered and hung (See MAR). Pt resting in bed. Will continue to monitor pt needs.
[2024-10-17 03:09] LABS: Glucose - Point of Care 87 mg/dl (70-99)
[2024-10-17] MEDS: ANCEF 5 IV ×2 (04:07→14:30)
--- NOTE | 2024-10-17 05:00 | PTCARENOTE ---
Addendum entered by Arleen Krishna RN 10/17/24 07:13:
Pratima d/c'ed
Original Note:
VSS. NSR on monitor. Morning labs obtained. Per CTPA Tslina, Pt delined. EKG and wt obtained. Pt OOB to chair and resting. Will continue to assess pt.
[2024-10-17 05:03] LABS: Glucose - Point of Care 85 mg/dl (70-99)
[2024-10-17 05:13] LABS: Blood Urea Nitrogen 26 mg/dl (7-17); Calcium 9.1 mg/dl (8.4-10.2); Carbon Dioxide 24 mmol/L (22-30); Chloride 109 mmol/L (98-107); Estimated Creatinine Clearance 51 ml/min; Glucose 94 mg/dl (70-99); Magnesium 2.5 mg/dl (1.6-2.3); Potassium 4.5 mmol/L (3.5-5.1); Sodium 141 mmol/L (135-145); eGFR > 60.00
[2024-10-17 05:17] LABS: Hematocrit 29.1 % (37.0-47.0); Hemoglobin 9.4 g/dL (12.0-16.0); Mean Corp Hgb Conc. 32.3 g/dL (33.0-37.0); Mean Platelet Volume 10.1 fL (7.4-10.4); Platelet Count 125 10^3/uL (130-400); Red Blood Cell Count 3.03 10^6/uL (4.20-5.40); Red Cell Dist. Width 13.4 % (11.5-14.5); White Blood Cell Count 12.5 10^3/uL (4.8-10.8)
--- NOTE | 2024-10-17 05:39 | W.PN.CT ---
Today's Communication / Plan
-
-pod #1
-no significant issues overnight
-responded well to IVF (total got 750 LR and 750 Albumin)
-nsr with PVCs, intermittently lamar mid 50s postop
-drips: insulin only. Levo is off at 4am
-CT output: R pleur/ Med 105/155 in 12/24 hrs
-delined
-d/c Andujar
-d/c insulin
-maintain Cordis, pw
-current meds meds (ASA, Lipitor, Amio, Protonix). Held BB d/t intermittent lamar 50s
-encourage IS, OOB
Assessment / Plan
-
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
- s/p Right mini thoracotomy, Radical mitral valve repair (32 mm ring annuloplasty), LAAE (35 mm clip) on 10/16/[address] Flores, pod #1
- Intraop MECHELLE: LVEF was 60 to 65% pre and postop with no new wma. After coming off cardiopulmonary bypass, there is no residual mitral valve deficiency, maybe trace in some views. There is no systolic anterior motion of the leaflets and a mean
gradient of 2 across the valve. Her left atrial appendage was verified to be free of any thrombus or debris preoperatively and found to be totally occlusive postoperatively.
- Hyperlipidemia
- Hypothyroidism
- History of constipation
- History of malignant melanoma on the right toe
- Lymphedema
- History of carotid stenosis
- Hypertension
- Single-vessel CAD, stable
- Osteopenia
- Palpitations
- Acute postop blood loss anemia - stable, no transfusion
- Acute postop atelectasis
- Acute postop hypovolemia with subsequent hypervolemia
Discussed patient care with: Nursing and Care Team
Subjective
-
Date of Service: October 16, 2024
Objective Data
-
Lab Results
10/16/24 15:45
10/16/24 22:47
PT 17.9 Sec (11.4-14.6) H 10/16/24 12:08
INR 1.45 10/16/24 12:08
APTT 30.2 Sec (23.4-35.0) 10/16/24 12:08
Vital Signs
Vital Signs
Temp Pulse Resp BP Pulse Ox
98.1 F 76 12 118/62 98
10/16/24 22:59 10/16/24 22:00 10/16/24 22:59 10/16/24 22:00 10/16/24 23:23
CT Intake/Output/Weight
10/16/24 10/16/24 10/17/24
06:59 18:59 06:59
Intake Total 943.3 / 1619.3 676.0 / 1619.3
Output Total 675 / 825 150 / 825
Balance 268.3 / 794.3 526.0 / 794.3
SaO2: 98
Physical Exam
-
General: Awake and AOx3
Cardiovascular: Regular rate & rhythm, No Murmurs and No Rub
Respiratory: Decreased Breath Sounds
Sternum: Stable
Incision: Clean, Dry and Dressing Intact
Extremities: Other (trace ankle edema, 2+ R DP and 1+ L DP)
Abdomen: soft, nondistended, nontender, + bowel sounds
Data Reviewed
-
Lab Results: Results Reviewed
Medications: Active Meds Reviewed
Chest X-Ray: Report Reviewed and Image Reviewed
ECG: Report Reviewed and Image Reviewed
[2024-10-17 07:04] LABS: Glucose - Point of Care 94 mg/dl (70-99)
[2024-10-17] MEDS: TYLENOL 1000 MG PO ×3 (07:04→21:56)
[2024-10-17] MEDS: SYNTHROID 112 MCG PO (07:04)
--- NOTE | 2024-10-17 07:13 | W.PN.ANS.POP ---
Anesthesia Post Operative
- Anesthesia Post Op Note
Vital Signs Stable-See Nursing Note: Yes
Airway Patent: Yes
Adequate Pain Control: Yes
Change in Mental Status: No
Current Postoperative Nausea & Vomiting: No
Anesthesia Complications: No
General Anesthetic Recall: No
Unplanned Admission: No
Post Op Hydration Adequate: Yes
--- NOTE | 2024-10-17 07:30 | PTCARENOTE ---
Assumed care of patient from tube buffer RN. AAO x 3 Sitting up in the chair. SR on monitor, Epicardial wire insulated. RT lateral chest tube intact. on suction at - 20 cm. No air leak or crepitus noted. 2 L NC 98%. Abdomen soft and non
tender, Passing flatus. Has not voided yet post calix removal. Pulses palpable. surgical sites well approximated. Plan for day discussed.
--- NOTE | 2024-10-17 07:36 | W.PN.INTV ---
Today's Communication / Plan
Recommendations
Tolerated extubation
Wean FiO2
Increase activity
Incentive spirometry encouraged
Insulin drip will be discontinued
Monitor chest tube output
Likely transfer to telemetry-call pulmonary if respiratory issues arise
Assessment
-
78-year-old female with a history of hyperlipidemia, hypothyroid, lymphedema, hypertension and stable single-vessel CAD who had myxomatous mitral valve degeneration with severe insufficiency and underwent radical mitral valve repair-sack lifter
consulted for postoperative ventilator/critical care management 10/16/2024.
Severe mitral insufficiency symptomatic
Status post right minithoracotomy, radical mitral valve repair-Dr. Flores 10/16/2024
Mild anemia
Mild hyperglycemia
Conditions present prior to admission:
Hypertension.
Hyperlipoidemia.
Hypothyroid.
Constipation.
Malignant melanoma.
[id number].
Severe mitral insufficiency.
Osteopenia.
Diverticulosis.
Prediabetes.
Anxiety.
Right great toe amputation for melanoma 2004. Oophorectomy 2002. Right lower extremity vein stripping 2021. Right carotid endarterectomy 2017. Bilateral cataract 2018. Blepharoplasty 2019.
Plan
Tolerated extubation
Wean FiO2
Encourage incentive spirometry
Increase activity
Aspiration precautions
Deline
Continue to monitor chest tube output
Follow hemoglobin
Continue to follow platelet count and coags
Transfuse blood product as needed
CT surgery following chest tubes as well
Follow blood sugar
Insulin supplementation continues as needed-drip will be discontinued
Early nutrition
Early mobilization
DVT prophylaxis
Patient will be transferred to telemetry phase-call pulmonary if respiratory issues arise
Reviewed the patient's pertinent medical records including radiographs, microbiology, laboratory evaluations, and discussion with primary team, and critical care nursing.
Diagnostic data:
Chest x-ray 10/16/2024-no pneumothorax, mild bibasilar opacifications compatible with subsegmental atelectasis
Cardiac catheterization 09/16/2024-stable single-vessel CAD, known normal biventricular filling pressures, normal cardiac output and no aortic stenosis
Transesophageal echocardiogram 10/16/2024-moderate mitral regurgitation, no thrombus or mass
Subjective Dataa
Subjective Data
Date of Service:
Date of Service: October 17, 2024
Chief Complaint: Hot Strip Mill Inspector Follow Up, Pulmonary Follow Up and Vent Management Follow Up
Subjective:
Tolerated extubation, no complaints of shortness of breath, pain overall controlled, no complaints of palpitations or abdominal pain
Review of Systems
General: Other (Per HPI)
Objective Data
Data Reviewed
Vital Signs / I&O / Oxygen:
Vital Signs
Temp Pulse Resp BP Pulse Ox
98.7 F 73 18 100/53 96
10/17/24 06:00 10/17/24 06:30 10/17/24 07:00 10/17/24 06:20 10/17/24 07:00
Intake and Output
10/16/24 10/17/24 10/18/24
06:59 06:59 06:59
Intake Total 2391.5 / 2522.3 130.8 / 130.8
Output Total 1060 / 1060 0 / 0
Balance 1331.5 / 1462.3 130.8 / 130.8
SaO2 [CPAP/PSV] 99
SaO2 [SIMV] 98
SaO2 96
Nasal Cannula flow liters per 2
minute
Physical Exam
General: Respiratory Distress (n) and Comfortable
HEENT: Normocephalic, Anicteric and Moist Mucous Membranes
Cardiovascular: Regular Rhythm and Murmur
Respiratory: Wheeze (n), Crackles (n), Rhonchi (n), Non-Labored Respirations, Accessory Resp Muscle Use (n) and Stridor
GI: Soft, Non Distended and Non Tender
Neurology: Awake, Alert and No Motor Deficits
Skin: Warm, Good Color, Cyanosis (n), Jaundice (n) and Rash (n)
Labs/Micro/Reports
Lab Data
10/17/24 04:13
10/17/24 04:13
Laboratory Results
10/16/24 10/16/24 10/16/24
12:08 12:09 15:45
PT 17.9 H
INR 1.45
APTT 30.2
pH 7.44 7.37
pCO2 35 44 H
pO2 82 L 161 H
HCO3 23.8 25.4
O2 Delivery Level
10/16/24
19:52
PT
INR
APTT
pH 7.37
pCO2 43 H
pO2 108
HCO3 24.9
O2 Delivery Level
[2024-10-17] MEDS: TORADOL 15 MG IV (08:22)
[2024-10-17] MEDS: LIDOCAINE 4% PATCH 1 PATCH TOPICAL (08:22)
[2024-10-17] MEDS: PROTONIX 40 MG PO (08:25)
[2024-10-17] MEDS: BACTROBAN 2% OINTMENT 1 APPLIC NASAL ×2 (08:25→20:08)
[2024-10-17] MEDS: LOW STRENGTH ASPIRIN 81 MG PO (08:25)
[2024-10-17] MEDS: PACERONE 200 MG PO (08:25)
[2024-10-17] MEDS: SENOKOT-S 1 TABLET PO ×2 (08:25→20:08)
[2024-10-17] MEDS: NEURONTIN 100 MG PO ×3 (08:25→21:54)
[2024-10-17 09:11] LABS: Glucose - Point of Care 97 mg/dl (70-99)
[2024-10-17] MEDS: NSS IV (10:05)
[2024-10-17] MEDS: ROXICODONE 5 MG PO ×3 (10:49→21:54)
--- NOTE | 2024-10-17 12:20 | W.PN.CD ---
Addendum entered and electronically signed by Parveen Gay MD 10/17/24 13:52:
78 yo is admitted pod#1 s/p MV repair. Doing well, sitting in chair. Exam with RRR, no murmurs, trace edema. EKG and tele: sinus.
Continue ASA, statin, metoprolol.
Original Note:
Today's Communication / Plan
-
-continue ASA
-continue Amio. BB when able. Follow tele and BP's. Close monitoring per post-op protocol.
-encourage IS, which I did
Impression / Plan
-
BACKGROUND: 78F with hypertension, dyslipidemia, prediabetes, hypothyroidism and severe mitral regurgitation with bileaflet prolapse presented for MVR.
Primary Stem Roller Or Crusher Operator: Dr. Martinez
IMPRESSION/PLAN:
Severe mitral regurgitation with bileaflet prolapse status post radical mitral valve repair 10/16/[address] Flores
-32 mm ring annuloplasty, reapproximation of A2 onto a 3, and LITO number 35 mm clip
-Difficult intubation requiring steroids IntraOp
-Pre-LVEF 60-65%, unchanged postop without regional wall motion abnormality
-SR on tele and EKG. Follow telemetry.
-Education regarding antibiotic prophylaxis prior to d/c
-she was given LR and albumin post-op
-CT's in place
Hypertension, olmesartan on hold- follow BP's, on low end currently
Nonobstructive coronary artery disease: on ASA, statin
Dyslipidemia, continue atorvastatin
PAD status post right CEA (2017), patent by carotid ultrasound, continue atorvastatin
Prediabetes, HgbA1c 5.7%
Hypothyroidism, on levothyroxine
SUBJECTIVE:
OOB to chair. Seems to be doing well. Pain at incision site improved s/p pain meds.
DATA:
Cardiac catheterization, 09/20/2024:
CONCLUSIONS:
1. Stable single vessel coronary artery disease in a right dominant system with FFR negative proximal LAD (FFR=0.86, unchanged from 2009)
2. Normal biventricular filling pressures, normal pulmonary artery pressure, normal cardiac output, and no aortic stenosis
Transesophageal echocardiogram, 08/08/2024:
CONCLUSIONS
Left ventricular ejection fraction is 60-65%. Normal regional wall motion.
Normal right ventricular size and function.
Mildly thickened mitral valve leaflets. Bileaflet mitral valve prolapse with
severe central mitral regurgitation.
Physical Exam
Vital Signs/Labs
Vital Signs
Temp Pulse Resp BP Pulse Ox
97.8 F 67 18 101/55 98
10/17/24 09:00 10/17/24 09:15 10/17/24 09:00 10/17/24 09:00 10/17/24 09:00
10/16/24 10/17/24 10/18/24
06:59 06:59 06:59
Actual Weight 66.2 kg 69.3 kg
10/17/24 04:13
10/17/24 04:13
PT 17.9 Sec (11.4-14.6) H 10/16/24 12:08
INR 1.45 10/16/24 12:08
APTT 30.2 Sec (23.4-35.0) 10/16/24 12:08
Magnesium 2.5 mg/dl (1.6-2.3) H 10/17/24 04:13
Physical Exam
Constitutional: No acute distress
EENT: Anicteric
Cardiovascular: Rhythm & rate is regular
Respiratory: Respiratory effort normal and Lungs clear to auscul.
Neuro/Psych: AO x 3
Data Reviewed
-
Date of Service: October 17, 2024
EKG: Other (SR)
Labs: Labs Reviewed by me
[2024-10-17] MEDS: FERRLECIT 110 MG IV (14:33)
--- NOTE | 2024-10-17 14:41 | CM ---
CM following for DC planning needs.
Patient is POD#[address] surgery[address]
Reviewed initial assessment. Pt. resides w/ spouse in a private, 2 story home. She is functionally indep. at baseline w/ ADLs, mobility without the use of any assisted device.
Anticipated DC plan is for home w/ CT Transitional Care RN.
CM to follow.
--- NOTE | 2024-10-17 15:05 | PTCARENOTE ---
Ambulated in hallway with RN x 2. Able to tolerate approx 120 feet w/o issue. Gait steady. Weaned to room air 95%.
[2024-10-17] MEDS: LASIX 40 MG IV (15:22)
--- NOTE | 2024-10-17 16:34 | PTCARENOTE ---
Ambulated again in room w/o issue. No dumping from chest tube. Voided x 1 unmeasured in toilet. VSS. Pain well controlled at present. Assessment unchanged from prior.
--- NOTE | 2024-10-17 20:00 | PTCARENOTE ---
Received pt from [facility]. Walking rounds completed. Pt assessment completed in chair. Pt is AAOx4. No neuro deficits noted. NSR on monitor, HR:70's, B/P:116/94. V-wires insulated. Bilateral radial and DP pulses palpable. - edema bilateral UE, +2
edema bilateral LE. Lungs clear, diminished in bases. POX 95% RA. R. Pleural C/T draining serosanguineous fluid WNL. I/S:750, pt encouraged to use 10X/hr while awake. BS normal. abdomen soft, non-tender to touch. pt voiding clear, yellow. R chest
incision VINER OPERATOR, approx. surgical glue present. R C/T dressing C/D/I. R I/J cordis intact, no redness or edema noted. R 20g PVA intact, no redness or edema noted. Discussed plan of care with pt. Pt agrees with plan. Will continue to monitor pt needs.
[2024-10-17] MEDS: LOPRESSOR 12.5 MG PO (20:08)
[2024-10-17] MEDS: OSCAL CAL 500 1000 MG PO (21:56)
[2024-10-17] MEDS: LIPITOR 40 MG PO (21:56)
--- NOTE | 2024-10-17 23:08 | PTCARENOTE ---
VSS. Pt in NSR on monitor. HR:68, B/P:100/61. Pm care provided for pt. Pt resting in bed. Will continue to monitor pt needs.
[2024-10-18] VITALS (12 sets, daily range): BP systolic 85–123; BP diastolic 47–92; PULSE 69; O2SAT 93–96; BMI 25.6
--- NOTE | 2024-10-18 04:45 | W.PN.CT ---
Today's Communication / Plan
-
-pod #2
-no issues overnight
-ambulated in hallways last night
-CT output: R pleur/med 50/115 in 12/24 hrs
-wean off O2 as tolerated - pOx 96% on 2L
-will need to cut R groin retention suture
-curent meds (ASA, Lipitor, Lopressor, Protonix, iv iron)
-encourage IS, OOB, ambulate
Assessment / Plan
-
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
- s/p Right mini thoracotomy, Radical mitral valve repair (32 mm ring annuloplasty), LAAE (35 mm clip) on 10/16/[address] Flores, pod #2
- Intraop MECHELLE: LVEF was 60 to 65% pre and postop with no new wma. After coming off cardiopulmonary bypass, there is no residual mitral valve deficiency, maybe trace in some views. There is no systolic anterior motion of the leaflets and a mean
gradient of 2 across the valve. Her left atrial appendage was verified to be free of any thrombus or debris preoperatively and found to be totally occlusive postoperatively.
- Hyperlipidemia
- Hypothyroidism
- History of constipation
- History of malignant melanoma on the right toe
- Lymphedema
- History of carotid stenosis
- Hypertension
- Single-vessel CAD, stable
- Osteopenia
- Palpitations
- Acute postop blood loss anemia - stable, no transfusion
- Acute postop atelectasis
- Acute postop hypovolemia with subsequent hypervolemia
Discussed patient care with: Nursing and Care Team
Subjective
-
Date of Service: October 18, 2024
Objective Data
-
PT 17.9 Sec (11.4-14.6) H 10/16/24 12:08
INR 1.45 10/16/24 12:08
APTT 30.2 Sec (23.4-35.0) 10/16/24 12:08
Vital Signs
Vital Signs
Temp Pulse Resp BP Pulse Ox
98 F 73 16 97/54 96
10/18/24 04:44 10/18/24 01:00 10/18/24 04:44 10/18/24 00:26 10/18/24 04:44
CT Intake/Output/Weight
10/17/24 10/17/24 10/18/24
06:59 18:59 06:59
Intake Total 1448.2 / 2522.3 1274.2 / 1604.2 330 / 1604.2
Output Total 385 / 1060 265 / 730 465 / 730
Balance 1063.2 / 1462.3 1009.2 / 874.2 -135 / 874.2
SaO2: 96
Physical Exam
-
General: Awake and AOx3
Cardiovascular: Regular rate & rhythm, No Murmurs and No Rub
Respiratory: Decreased Breath Sounds (few rales at R base. No wheeze b/l)
Sternum: Stable
Incision: Clean, Dry and Intact
Extremities: Edema +1
Abdomen: soft, nontender, nondistended, - BM, + flatus
Data Reviewed
-
Lab Results: Results Reviewed
Medications: Active Meds Reviewed
Chest X-Ray: Report Reviewed and Image Reviewed
ECG: Report Reviewed and Image Reviewed
[2024-10-18 04:46] LABS: Hematocrit 27.9 % (37.0-47.0); Hemoglobin 8.8 g/dL (12.0-16.0); Mean Corp Hgb Conc. 31.5 g/dL (33.0-37.0); Mean Corpuscular Volume 98.2 fL (81.0-99.0); Mean Platelet Volume 10.1 fL (7.4-10.4); Platelet Count 109 10^3/uL (130-400); Red Blood Cell Count 2.84 10^6/uL (4.20-5.40); Red Cell Dist. Width 13.8 % (11.5-14.5)
[2024-10-18] MEDS: ROXICODONE 5 MG PO ×2 (04:48→16:12)
--- NOTE | 2024-10-18 05:00 | PTCARENOTE ---
VSS. AM care provided. Morning labs obtained and sent. Wt obtained. PT OOB to chair. Pt resting in chair. Will continue to monitor pt needs.
[2024-10-18 05:38] LABS: Blood Urea Nitrogen 42 mg/dl (7-17); Calcium 8.9 mg/dl (8.4-10.2); Carbon Dioxide 28 mmol/L (22-30); Chloride 101 mmol/L (98-107); Estimated Creatinine Clearance 37 ml/min; Glucose 120 mg/dl (70-99); Magnesium 2.3 mg/dl (1.6-2.3); Potassium 4.7 mmol/L (3.5-5.1); Sodium 137 mmol/L (135-145); eGFR 51.11
[2024-10-18] MEDS: TYLENOL 1000 MG PO ×3 (05:43→22:13)
[2024-10-18] MEDS: SYNTHROID 112 MCG PO (05:44)
[2024-10-18] MEDS: LOW STRENGTH ASPIRIN 81 MG PO (08:00)
[2024-10-18] MEDS: PROTONIX 40 MG PO (08:00)
[2024-10-18] MEDS: SENOKOT-S 1 TABLET PO ×2 (08:00→19:40)
[2024-10-18] MEDS: LOPRESSOR 12.5 MG PO (08:00)
[2024-10-18] MEDS: NEURONTIN 100 MG PO ×3 (08:00→22:14)
[2024-10-18] MEDS: PACERONE 200 MG PO ×3 (08:01→22:14)
[2024-10-18] MEDS: LIDOCAINE 4% PATCH 1 PATCH TOPICAL (08:01)
[2024-10-18] MEDS: BACTROBAN 2% OINTMENT 1 APPLIC NASAL ×2 (08:01→19:40)
--- NOTE | 2024-10-18 08:07 | PTCARENOTE ---
Assumed care of patient from hat checker RN. AAO x 3 sitting up in the chair. Rt side chest tube intact, some drainage noted on dressing. No crepitus noted, set to - 20 cm suction. SR on monitor. Epicardial wire insulated. Room air 93%.
Abdomen soft and non tender. Positive flatus. Voiding w/o issue. Trace pedal edema appreciated. Pulses palpable. Plan for day discussed.
--- NOTE | 2024-10-18 09:27 | PTCARENOTE ---
Rt Lateral chest tube removed per order. Pt tolerated. resting in bed after.
[2024-10-18] MEDS: NSS IV (12:37)
--- NOTE | 2024-10-18 12:37 | PTCARENOTE ---
Ambulating in room with minimal assist. Pain better without chest tube. VSS Assessment unchanged from prior.
--- NOTE | 2024-10-18 12:44 | W.PN.CD ---
Today's Communication / Plan
-
-Remains in sinus rhythm on telemetry.
-Continue routine post-surgical care as directed by CT Surgery.
Impression / Plan
-
BACKGROUND: 78F with hypertension, dyslipidemia, prediabetes, hypothyroidism and severe mitral regurgitation with bileaflet prolapse presented for MVR.
Primary Field Mechanic: Dr. Malave-->Dr. Martinez
IMPRESSION/PLAN:
Severe mitral regurgitation with bileaflet prolapse status-post radical mitral valve repair (10/16/[address] Flores)
-32 mm ring annuloplasty, reapproximation of A2 onto a 3, and LITO number 35 mm clip
-Difficult intubation requiring steroids IntraOp
-Pre-LVEF 60-65%, unchanged postop without regional wall motion abnormality
-Continue metoprolol tartrate and prophylactic amiodarone.
-Remains in sinus rhythm on telemetry.
-Continue routine post-surgical care as directed by CT Surgery.
Hypertension, olmesartan on hold- follow BP's, on low end currently
-Continue current dose of metoprolol tartrate.
Nonobstructive coronary artery disease: on ASA, statin
Dyslipidemia, continue atorvastatin
PAD status post right CEA (2017), patent by carotid ultrasound, continue atorvastatin
Prediabetes, HgbA1c 5.7%
Hypothyroidism, on levothyroxine
SUBJECTIVE:
OOB to chair. Seems to be doing well. Pain at incision site improved s/p pain meds.
DATA:
Cardiac catheterization, 09/20/2024:
CONCLUSIONS:
1. Stable single vessel coronary artery disease in a right dominant system with FFR negative proximal LAD (FFR=0.86, unchanged from 2009)
2. Normal biventricular filling pressures, normal pulmonary artery pressure, normal cardiac output, and no aortic stenosis
Transesophageal echocardiogram, 08/08/2024:
CONCLUSIONS
Left ventricular ejection fraction is 60-65%. Normal regional wall motion.
Normal right ventricular size and function.
Mildly thickened mitral valve leaflets. Bileaflet mitral valve prolapse with
severe central mitral regurgitation.
Physical Exam
Vital Signs/Labs
Vital Signs
Temp Pulse Resp BP Pulse Ox
97.8 F 72 16 99/54 94
10/18/24 11:57 10/18/24 11:57 10/18/24 11:57 10/18/24 08:00 10/18/24 11:57
10/17/24 10/18/24 10/19/24
06:59 06:59 06:59
Actual Weight 69.3 kg 69.9 kg
10/18/24 04:21
10/18/24 04:21
PT 17.9 Sec (11.4-14.6) H 10/16/24 12:08
INR 1.45 10/16/24 12:08
APTT 30.2 Sec (23.4-35.0) 10/16/24 12:08
Magnesium 2.3 mg/dl (1.6-2.3) 10/18/24 04:21
Physical Exam
Constitutional: No acute distress and Comfortable
EENT: Anicteric
Cardiovascular: Rhythm & rate is regular, Pedal edema is absent, Systolic murmur absent and S1S2 is normal
Respiratory: Respiratory effort normal and Lungs clear to auscul.
GI: Soft
Other: Skin (Warm)
Data Reviewed
-
Date of Service: October 18, 2024
EKG: Tracing Personally Visualized and interpreted (Telemetry: Sinus rhythm)
Labs: Labs Reviewed by me
Critical Care Time (in minutes): 35
[2024-10-18] MEDS: FERRLECIT 110 MG IV (13:27)
--- NOTE | 2024-10-18 15:14 | CM ---
CM following for DC planning needs.
Met w/ patient and spouse at bedside. Patient reports that she feels well POD#1.
We reviewed DC plan for home w/ CT Transitional Care RN.
Will cont. to follow for DC planning needs.
--- NOTE | 2024-10-18 19:30 | PTCARENOTE ---
Received pt from [facility]. Walking rounds completed. Pt assessment completed in chair. Pt is AAOx4. No neuro deficits noted. NSR on monitor. HR 70's, B/P 89/53. V-wires insulated. POX 96% 2L. Lungs clear, diminished in bases. I/S 750 ml. Encouraged
pt to use 10X/hr while awake. Normal BS. abdomen soft, non-tender to touch. Pt voiding clear, yellow urine. R chest incision BETTYE, approx. surgical glue present. R C/T dressing C/D/I. R I/J cordis intact, no redness or edema noted. R 20g PVA
intact, no redness or edema noted. Discussed plan of care with pt. Pt agrees with plan. Will continue to monitor pt needs.
[2024-10-18] MEDS: LOPRESSOR PO (19:41)
--- NOTE | 2024-10-18 19:52 | PTCARENOTE ---
[facility]. Pt assessment completed in chair. Pt is AAOx4. No neuro deficits noted. NSR on monitor. HR 70's, B/P 89/53. POX 96% 2L. Lungs clear, diminished in bases. I/S 750 ml. Encouraged pt to use 10X/hr
while awake. Normal BS. abdomen soft, non-tender to touch. Pt voiding clear, yellow urine. R chest incision BETTYE, approx. surgical glue present. R C/T dressing C/D/I. R I/J cordis intact, no redness or edema noted. R 20g PVA intact, no redness or
edema noted. Discussed plan of care with pt. Pt agrees with plan. Will continue to monitor pt needs.
[2024-10-18] MEDS: OSCAL CAL 500 1000 MG PO (22:13)
[2024-10-18] MEDS: LIPITOR 40 MG PO (22:13)
--- NOTE | 2024-10-18 23:00 | PTCARENOTE ---
VSS. Pt in NSR on monitor. HR 77, B/P 104/74. PM care provided. HS medications provided (See MAR). Pt back to bed and resting. Will continue to monitor pt needs.
[2024-10-19] VITALS (13 sets, daily range): BP systolic 83–111; BP diastolic 34–65; PULSE 78; O2SAT 92–95; BMI 25.9
[2024-10-19] MEDS: ROXICODONE 5 MG PO (00:46)
[2024-10-19 03:41] LABS: Hepatitis C Antibody Negative (Negative)
--- NOTE | 2024-10-19 04:14 | PTCARENOTE ---
VSS, NSR on monitor. HR: 71, B/P: 89/53, POX 94% 2L NC. Morning labs obtained and sent. CHG bath provided. Wt obtained. Pt resting in bed. Will continue to monitor pt needs.
[2024-10-19] MEDS: NSS 500 IV (04:29)
[2024-10-19 04:35] LABS: Hematocrit 27.1 % (37.0-47.0); Hemoglobin 8.6 g/dL (12.0-16.0); Mean Corp Hgb Conc. 31.7 g/dL (33.0-37.0); Mean Corpuscular Hgb 31.2 pg (27.0-31.0); Mean Corpuscular Volume 98.2 fL (81.0-99.0); Mean Platelet Volume 10.1 fL (7.4-10.4); Platelet Count 103 10^3/uL (130-400); Red Blood Cell Count 2.76 10^6/uL (4.20-5.40); Red Cell Dist. Width 13.6 % (11.5-14.5); White Blood Cell Count 11.5 10^3/uL (4.8-10.8)
[2024-10-19 05:10] LABS: Blood Urea Nitrogen 46 mg/dl (7-17); Carbon Dioxide 28 mmol/L (22-30); Chloride 100 mmol/L (98-107); Estimated Creatinine Clearance 46 ml/min; Glucose 125 mg/dl (70-99); Magnesium 2.3 mg/dl (1.6-2.3); Potassium 4.5 mmol/L (3.5-5.1); Sodium 134 mmol/L (135-145); eGFR > 60.00
[2024-10-19] MEDS: TYLENOL 1000 MG PO ×3 (05:25→21:13)
[2024-10-19] MEDS: SYNTHROID 112 MCG PO (05:26)
--- NOTE | 2024-10-19 07:01 | W.PN.CT ---
Today's Communication / Plan
-
-pod #3
-no issues overnight
-hypotension - will hold BB
-wean off O2 as tolerated - pOx 94% on 2L
-Echo today
-will need to cut R groin retention suture
-curent meds (ASA, Lipitor, Lopressor, Protonix, iv iron)
-encourage IS, OOB, ambulate
Assessment / Plan
-
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
- s/p Right mini thoracotomy, Radical mitral valve repair (32 mm ring annuloplasty), LAAE (35 mm clip) on 10/16/[address] Flores, pod #3
- Intraop MECHELLE: LVEF was 60 to 65% pre and postop with no new wma. After coming off cardiopulmonary bypass, there is no residual mitral valve deficiency, maybe trace in some views. There is no systolic anterior motion of the leaflets and a mean
gradient of 2 across the valve. Her left atrial appendage was verified to be free of any thrombus or debris preoperatively and found to be totally occlusive postoperatively.
- Hyperlipidemia
- Hypothyroidism
- History of constipation
- History of malignant melanoma on the right toe
- Lymphedema
- History of carotid stenosis
- Hypertension
- Single-vessel CAD, stable
- Osteopenia
- Palpitations
- Acute postop blood loss anemia - stable, no transfusion
- Acute postop atelectasis
- Acute postop hypovolemia with subsequent hypervolemia
Discussed patient care with: Nursing and Care Team
Subjective
-
Date of Service: October 19, 2024
Objective Data
-
Lab Results
10/19/24 04:11
10/19/24 04:11
PT 17.9 Sec (11.4-14.6) H 10/16/24 12:08
INR 1.45 10/16/24 12:08
APTT 30.2 Sec (23.4-35.0) 10/16/24 12:08
Vital Signs
Vital Signs
Temp Pulse Resp BP Pulse Ox
98.8 F 71 16 89/53 94
10/19/24 04:05 10/19/24 04:08 10/19/24 04:05 10/19/24 04:08 10/19/24 04:05
CT Intake/Output/Weight
10/18/24 10/19/24 10/19/24
18:59 06:59 18:59
Intake Total 270 / 380 110 / 380
Output Total 200 / 400 200 / 400
Balance 70 / -20 -90 / -20
SaO2: 94
Physical Exam
-
General: Awake and AOx3
Cardiovascular: Regular rate & rhythm, No Murmurs and No Rub
Respiratory: Decreased Breath Sounds
Sternum: Stable
Incision: Clean, Dry and Intact
Extremities: Edema +1
Data Reviewed
-
Lab Results: Results Reviewed
Medications: Active Meds Reviewed
Chest X-Ray: Report Reviewed and Image Reviewed
ECG: Report Reviewed and Image Reviewed
--- NOTE | 2024-10-19 08:00 | PTCARENOTE ---
Received pt from prev RN. Walking rounds completed. assessment done while patient in chair. Pt is AAOx3. NSR on monitor. HR 70's. V wire insulated. BP soft. 80s. midodrine ordered from [place] and administered. POX 96% 2L but when put to RA pulse ox
dropped to 88%. 1L nc replaced and pulse ox 96%. Lung diminished in bases. I/S 750 ml. tolerating diet. no BM. voiding dark magdiel urine. All surgical sites c/d/i. R I/J cordis with KVO infusing. Will continue to monitor.
--- NOTE | 2024-10-19 08:29 | W.PN.CD ---
Today's Communication / Plan
-
cont. post op care as directed by CTS
re-initiation of metoprolol pending improvement in blood pressures
tte
Impression / Plan
-
BACKGROUND: 78F with hypertension, dyslipidemia, prediabetes, hypothyroidism and severe mitral regurgitation with bileaflet prolapse presented for MVR.
Primary Sales Account Director: Dr. Malave-->Dr. Martinez
IMPRESSION/PLAN:
Severe mitral regurgitation with bileaflet prolapse status-post radical mitral valve repair (10/16/[address] Flores)
-32 mm ring annuloplasty, reapproximation of A2 onto a 3, and LITO number 35 mm clip
-Difficult intubation requiring steroids IntraOp
-Pre-LVEF 60-65%, unchanged postop without regional wall motion abnormality
-Continue metoprolol tartrate and prophylactic amiodarone.
-Remains in sinus rhythm on telemetry.
-Continue routine post-surgical care as directed by CT Surgery.
Hypertension, now hypotensive post op
-no dizziness on ambulation
-olmesartan on hold, metoprolol on hold
-low dose midodrine per CTS
Nonobstructive coronary artery disease: on ASA, statin
Dyslipidemia, continue atorvastatin
PAD status post right CEA (2017), patent by carotid ultrasound, continue atorvastatin
Prediabetes, HgbA1c 5.7%
Hypothyroidism, on levothyroxine
SUBJECTIVE:
OOB to chair. Seems to be doing well. Pain at incision site improved s/p pain meds. No dizziness on ambulation.
DATA:
CXR 10/19/24: interval removal right chest tube, mild progression of R basilar opacity
Cardiac catheterization, 09/20/2024:
CONCLUSIONS:
1. Stable single vessel coronary artery disease in a right dominant system with FFR negative proximal LAD (FFR=0.86, unchanged from 2009)
2. Normal biventricular filling pressures, normal pulmonary artery pressure, normal cardiac output, and no aortic stenosis
Transesophageal echocardiogram, 08/08/2024:
CONCLUSIONS
Left ventricular ejection fraction is 60-65%. Normal regional wall motion.
Normal right ventricular size and function.
Mildly thickened mitral valve leaflets. Bileaflet mitral valve prolapse with
severe central mitral regurgitation.
Physical Exam
Vital Signs/Labs
Vital Signs
Temp Pulse Resp BP Pulse Ox
36.9 C 73 18 84/34 96
10/19/24 07:39 10/19/24 07:39 10/19/24 07:39 10/19/24 07:12 10/19/24 08:10
10/18/24 10/19/24 10/20/24
06:59 06:59 06:59
Actual Weight 69.9 kg 70.6 kg
10/19/24 04:11
10/19/24 04:11
PT 17.9 Sec (11.4-14.6) H 10/16/24 12:08
INR 1.45 10/16/24 12:08
APTT 30.2 Sec (23.4-35.0) 10/16/24 12:08
Magnesium 2.3 mg/dl (1.6-2.3) 10/19/24 04:11
Physical Exam
Constitutional: No acute distress
Cardiovascular: Rhythm & rate is regular, Pedal edema is absent, JVD pressure is normal, Systolic murmur absent and Diastolic murmur absent
Respiratory: Respiratory effort normal, Lungs clear to auscul. and Wheeze Absent
GI: Distention absent
Neuro/Psych: AO x 3
Data Reviewed
-
Date of Service: October 19, 2024
Medical Decision Making: Reviewed Test Results and Review of Case with other Provider
EKG: Tracing Personally Visualized and interpreted
X-Ray/CT/US/MRI/NUC/PET: Image Personally Visualized and interpreted and Report Reviewed by me
Labs: Labs Reviewed by me
Critical Care Time (in minutes): 35
Total Time Spent with Patient (in minutes): 15
[2024-10-19] MEDS: NEURONTIN 100 MG PO (09:31)
[2024-10-19] MEDS: SENOKOT-S 1 TABLET PO ×2 (09:31→19:26)
[2024-10-19] MEDS: LIDOCAINE 4% PATCH TOPICAL (09:31)
[2024-10-19] MEDS: PROTONIX 40 MG PO (09:32)
[2024-10-19] MEDS: ProAmatine 5 MG PO ×3 (09:32→17:02)
[2024-10-19] MEDS: PACERONE 200 MG PO ×3 (09:32→21:13)
[2024-10-19] MEDS: LOW STRENGTH ASPIRIN 81 MG PO (09:32)
[2024-10-19] MEDS: BACTROBAN 2% OINTMENT 1 APPLIC NASAL ×2 (09:35→19:25)
--- NOTE | 2024-10-19 13:26 | PN.CDI ---
Addendum entered and electronically signed by Loc Goldsmith PA-C 10/19/24 13:46:
Pt with postoperative PHONG.
Original Note:
CDI
- -
CDI:
Physician Documentation Request
Admit Date: 10/16/24 04:[address] Surgery,
Clinical Indicators:
Patient admitted with myxomatous degeneration of the mitral valve; s/p radical mitral valve repair and LAAE 10/16.
Cr/GFR trend:
10/16/24 10/17/24 10/18/24
12:09 04:13 04:21
Creatinine 0.7 0.8 1.1 H
eGFR >60.00 > 60.00 51.11
Please clarify which of the following accurately represents the patient's renal status:
PHONG
Rise in creatinine only
Other
Criteria for PHONG*
1 Increase in serum creatinine by > or = to 0.3 mg/dL (> or = to 26.5 micromol/L) within 48 hours, OR
2 Increase in serum creatinine to > or = to 1.5 times baseline, which is known or presumed to have occurred within 7 days, OR
3 Urine volume < 0.5 nL/kg/hour for six hours
*
Use of terms such as suspected, likely, concern for, or probable (associated with a specific diagnosis that is being evaluated, monitored, or treated as if it exists) are acceptable and can be coded in the inpatient setting, when documented at the
time of discharge.
Thank you,
Almaz Sepulveda RN BSN
CDI Specialist
available via tiger text
Please use your independent medical judgment in providing your response.
*Source: Kidney Disease: Improving Global Outcomes (KDIGO) 2012
[2024-10-19] MEDS: FERRLECIT 110 MG IV (14:15)
--- NOTE | 2024-10-19 14:28 | PTCARENOTE ---
VSS on midodrine. 250 of magdiel urine. no additional change in assessment at this time,.
--- NOTE | 2024-10-19 15:01 | CM ---
CM following for DC planning needs.
Met w/ patient at bedside. Pt. feels well, POD#2.
Reviewed DC plan for home w/ CT Transitional Care RN. Pt. anticipating DC to home tomorrow, 10/20.
No other needs anticipated.
Plan: HOME w/ CT RN
CM to cont. to follow.
--- NOTE | 2024-10-19 20:00 | PTCARENOTE ---
Assumed care of the patient at 1900. Patient OOB in chair, daughter at bedside. No acute complaints of pain. NSR on monitor, rate 70's, v wire present and insulated, +2 B/L LE nonpitting edema present, pulses palpable throughout. Patient on RA,
satting 93%, lungs clear, IS encouraged. Abdomen round, SNT, patient endorses passing flatus but no BM since admission, appetite good. Voids spontaneously on the toilet, concentrated yellow urine. Patient pale, axillary incision CDI, R groin site
intact with scant old sanguineous drainage, 4x4 gauze present. L groin Dermabond intact, R CT wound site dressing intact. RIJ Cordis present infusing KVO, #20 PIVx1 in RAC. VSS, patient and daughter updated on POC, in agreement, call aggarwal within
reach. Assessment of needs ongoing.
[2024-10-19] MEDS: OSCAL CAL 500 1000 MG PO (21:13)
[2024-10-19] MEDS: LIPITOR 40 MG PO (21:13)
[2024-10-20] VITALS (9 sets, daily range): BP systolic 94–138; BP diastolic 56–69; PULSE 75; O2SAT 94; BMI 26.2
--- NOTE | 2024-10-20 | PTCARENOTE ---
No change in assessment. Patient arouse to verbal for vitals signs. Sleeping comfortably in bed no acute complaints.
[2024-10-20] MEDS: TORADOL 15 MG IV (00:51)
--- NOTE | 2024-10-20 03:43 | PTCARENOTE ---
Assessment unchanged, patient asleep, given Toradol for discomfort.
[2024-10-20 04:42] LABS: Ionized Calcium 1.35 mMOL/L (1.15-1.33)
[2024-10-20 05:13] LABS: Blood Urea Nitrogen 41 mg/dl (7-17); Calcium 8.8 mg/dl (8.4-10.2); Carbon Dioxide 28 mmol/L (22-30); Chloride 103 mmol/L (98-107); Estimated Creatinine Clearance 46 ml/min; Glucose 104 mg/dl (70-99); Magnesium 2.3 mg/dl (1.6-2.3); Potassium 4.4 mmol/L (3.5-5.1); Sodium 135 mmol/L (135-145); eGFR > 60.00
[2024-10-20 05:15] LABS: Hematocrit 25.6 % (37.0-47.0); Hemoglobin 8.5 g/dL (12.0-16.0); Mean Corp Hgb Conc. 33.2 g/dL (33.0-37.0); Mean Corpuscular Hgb 31.4 pg (27.0-31.0); Mean Corpuscular Volume 94.5 fL (81.0-99.0); Mean Platelet Volume 10.6 fL (7.4-10.4); Platelet Count 112 10^3/uL (130-400); Red Blood Cell Count 2.71 10^6/uL (4.20-5.40); Red Cell Dist. Width 13.4 % (11.5-14.5); White Blood Cell Count 8.4 10^3/uL (4.8-10.8)
--- NOTE | 2024-10-20 05:55 | W.PN.CT ---
Today's Communication / Plan
-
Plan:
-No major issues overnight
-BP has been soft postop, currently requiring Midodrine. BB is on hold
-H/H 8.5/25.6, consider 1u PRBC to assist with BP. H/H 13.5/40.5 preop. C/o fatigue and 'wobbly on my feet'
-Repeat echo yesterday showed MV repair is intact, with MG of 3mmHG, no MR, EF 60-65%, mild TR
-Con. current meds (ASA, Lipitor, Lopressor, Protonix, iv iron)
-F/U 2-view cxr
-OOB into chair/Ambulate
-D/C cordis if going home
-Possibly home today
Assessment / Plan
-
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
- s/p Right mini thoracotomy, Radical mitral valve repair (32 mm ring annuloplasty), LAAE (35 mm clip) on 10/16/[address] Flores, pod #4
- Intraop MECHELLE: LVEF was 60 to 65% pre and postop with no new wma. After coming off cardiopulmonary bypass, there is no residual mitral valve deficiency, maybe trace in some views. There is no systolic anterior motion of the leaflets and a mean
gradient of 2 across the valve. Her left atrial appendage was verified to be free of any thrombus or debris preoperatively and found to be totally occlusive postoperatively.
- Hyperlipidemia
- Hypothyroidism
- History of constipation
- History of malignant melanoma on the right toe
- Lymphedema
- History of carotid stenosis
- Hypertension
- Single-vessel CAD, stable
- Osteopenia
- Palpitations
- Acute postop blood loss anemia - stable, no transfusion
- Acute postop atelectasis
- Acute postop hypovolemia with subsequent hypervolemia
- Acute postop hyponatremia, 134
Discussed patient care with: Cardiology, Nursing, Respiratory Therapy, Pharmacy and Care Team
Subjective
-
Date of Service: October 20, 2024
Pt c/o mild incisional pain, fatigue and unsteady gait, otherwise feels well
Objective Data
-
Lab Results
10/20/24 04:17
10/20/24 04:17
PT 17.9 Sec (11.4-14.6) H 10/16/24 12:08
INR 1.45 10/16/24 12:08
APTT 30.2 Sec (23.4-35.0) 10/16/24 12:08
Vital Signs
Vital Signs
Temp Pulse Resp BP Pulse Ox
98.1 F 75 18 96/62 90
10/20/24 04:13 10/20/24 04:13 10/20/24 04:13 10/20/24 04:13 10/20/24 04:13
CT Intake/Output/Weight
10/19/24 10/19/24 10/20/24
06:59 18:59 06:59
Intake Total 110 / 380 160 / 160
Output Total 200 / 400 250 / 950 700 / 950
Balance -90 / -20 -90 / -790 -700 / -790
SaO2: 92 (RA)
Physical Exam
-
General: Awake, Oriented and AOx3
Cardiovascular: Regular rate & rhythm, No Murmurs, No Rub and No Gallop
Respiratory: Decreased Breath Sounds (at bases, otherwise clear)
Sternum: Stable
Incision: Clean, Dry, Intact and Dressing Intact
Extremities: Other (+trace edema)
Data Reviewed
-
Lab Results: Results Reviewed
Medications: Active Meds Reviewed
Chest X-Ray: Report Reviewed and Image Reviewed
ECG: Report Reviewed and Image Reviewed
[2024-10-20] MEDS: TYLENOL PO (06:41)
[2024-10-20] MEDS: SYNTHROID 112 MCG PO (06:41)
[2024-10-20] MEDS: BACTROBAN 2% OINTMENT 1 APPLIC NASAL (09:10)
[2024-10-20] MEDS: LIDOCAINE 4% PATCH TOPICAL (09:10)
[2024-10-20] MEDS: ProAmatine PO (09:10)
[2024-10-20] MEDS: NSS IV (09:17)
[2024-10-20] MEDS: PACERONE 200 MG PO (09:17)
[2024-10-20] MEDS: PROTONIX 40 MG PO (09:17)
[2024-10-20] MEDS: SENOKOT-S 1 TABLET PO (09:17)
[2024-10-20] MEDS: LOW STRENGTH ASPIRIN 81 MG PO (09:17)
--- NOTE | 2024-10-20 12:35 | W.[place]-PDMP ---
[place]-PDMP
-
Checked the [place]- Prescription Drug Monitoring Program website, no red flags identified; safe to proceed with prescription.
--- NOTE | 2024-10-21 13:05 | W.DCSUMMARY ---
Discharge Summary
Discharge Data
Date of Admission: 10/16/24
Date of Discharge: 10/21/24
-
Pending Results: No
Hospital Course
Patient is a 78-year-old female electively admitted to [facility] for mitral valve repair. Her past medical history significant for hypercholesterolemia, colonic polyps, hypothyroidism, constipation, malignant melanoma of right big toe,
lymphedema, diverticulitis, carotid stenosis, hypertension, PAD, prediabetes, mild single-vessel coronary artery disease, history of UTIs, osteopenia, cataracts status post cataract surgery, anxiety, right great toe amputation for melanoma, right
lower extremity vein stripping, right carotid endarterectomy and a former smoker quit 1974.
She was seen in consultation with Dr. Abdirahman Flores and found to be an acceptable surgical candidate. Echocardiogram showed severe mitral valve insufficiency secondary to mild prolapse, type II pathology. Transesophageal echocardiogram showed
mildly thickened anterior and posterior leaflets. There was preserved left ventricular ejection fraction with an ejection fraction of 60 to 65%. She is complained of increased fatigue with activity which has increased over the past 6 months.
On the morning of 10/16/2024 she was admitted electively to [facility] where later that morning she was brought to the operating room where she underwent right minithoracotomy for a radical mitral valve repair with a 32 mm annuloplasty
ring. The left atrial appendage was excluded with a 35 mm clip. She tolerated the procedure well and was returned to the surgical intensive care unit where she arrived in hemodynamically stable condition. She was able to be extubated
approximately 1600 on the afternoon of surgery. Her blood pressure was initially supported with low-dose Levophed. Her first night in the intensive care unit was uneventful.
It should be noted patient did not receive any blood transfusions in the operating room or during her entire hospital stay at [facility].
Postoperative day #1 her cardiac index was improved and Levophed drip was discontinued. Beta-riley was held due to hypotension. She did receive IV diuretics for volume overload. Postoperative day #2 her chest tubes were removed. Postoperative
day #3 midodrine was started for soft blood pressures. Echocardiogram performed showed normal left ventricular size and function. Ejection fraction noted to be 60 to 65%. Mean gradient mitral valve was measured at 3 mmHg. There was no MR seen on
this study.
Postoperative day #4 blood pressure now improved and midodrine was discontinued. She was now able to ambulate household distances without difficulty. She continued in sinus rhythm. 2 view chest x-ray performed showed small bilateral effusions but
overall slightly improved. After evaluation with PT/OT she was felt to be stable for discharge. She was able to be discharged late in the afternoon of 10/20/2024.
Discharge labs were as follows white blood cell count 8.4, hemoglobin 8.5, hematocrit 25.6, platelets 112.
Sodium 135 potassium 4.4 BUN 41, creatinine 0.9
Vital signs at time of discharge, sinus rhythm on telemetry, afebrile, heart rate 73 and regular, blood pressure 133/64, pulse ox 97% on room air.
She was given a full set of discharge instructions and follow-up appointments. She will be followed by our transitional care nurses after her arrival at home. She will need beta-riley started after her arrival at home now that her blood pressure
has improved.
Discharge Plan
-
Patient Disposition: Home (Routine Discharge)
Discharge Diagnosis/Procedures: mitral valve repair/Left atrial appendage clip
Condition: Good
Diet: No restrictions and Low Sodium
Activity: No strenuous activity
Driving Restrictions: Not until seen by your Dr
Bathing Restrictions: OK to Shower
Other Services: Cardiac Rehab
Specialty Instructions: Weigh Daily- Call MD for wt gain/loss 3 lbs overnight/5 lbs in 1 week
Referrals:
CT Transitional Care Nurse [Outside] (The Cardiothoracic Transitional Care Nurse will call you to set up a visit in 1-2 days.)
[facility]. Cardiac Rehab [Outside] - 12/05/24 9:00 am
(Cardiac Rehab Orientation appointment is on Tuesday12/05/24 9am
The Cardiac Rehab gym is located on the first floor of the [facility].)
Dina Lane NP [Specified Professional Personl] - 11/19/24 2:40 pm
Cece Ugalde MD [Family Provider] -
Abdirahman Flores MD [Active] - 11/15/24 2:15 pm
Additional Discharge Medication Instructions: New rx: oxycodone prn/sennosides-docusate sodium for constipation
Prescriptions:
New
sennosides-docusate sodium 8.6-50 mg Tablet
1 tab PO Q12 Qty: 20 1RF
oxycodone 5 mg Tablet
2.5 mg PO Q4HPRN PRN (Reason: mild pain) Qty: 10 0RF
Continued
levothyroxine 112 MCG tablet
112 mcg PO DAILY
alprazolam 0.5 mg Tablet
0.25 mg PO Q8H PRN (Reason: flying)
melatonin 5 mg Tablet, Sublingual
5 mg SUBLINGUAL HS PRN (Reason: insomnia)
atorvastatin 40 mg Tablet
40 mg PO HS
calcium carbonate 500 mg calcium (1,250 mg) Tablet,Chewable
1,000 mg PO HS
omeprazole 20 mg Tablet,Delayed Release (Dr/Ec)
20 mg PO HS
acetaminophen 500 mg Tablet
500 mg PO Q6H PRN (Reason: pain)
aspirin 81 MG tablet,delayed release (DR/EC)
81 mg PO DAILY
Held
olmesartan 20 mg Tablet
20 mg PO DAILY
Hold Instructions: Resume on 11/09/24. hold until seen by your doctor
Discharge Orders:
Discharge Patient (As Directed); Ordered 10/20/24
Ordered By: Loc Goldsmith
Care Plan Goals
Care Plan Goals:
Problem: Readiness for enhanced knowledge related to diagnosis and treatment plan
Goal: Understand your diagnosis and treatment plan needs, including medications if applicable.
Instructions: Know your diagnosis, underlying causes and treatment plan options, including medications if applicable. Consult with your health care team to learn about your diagnosis and treatment plan, including medications if applicable.
Discharge Date and Time
Discharge Date/Time: 10/20/24 14:03
Print Language: NEPALI
== END 2024-10-20 14:03 | disposition home or self-care (01) | DRG 220 ==
LOC: CVICU 04:52
PROVIDERS: Anesthesiology; Clinical Nurse Specialist Acute Care; Physician Assistant Medical; ADMITTING PHYSICIAN Thoracic Surgery (Cardiothoracic Vascular Surgery); CONSULT PHYSICIAN Internal Medicine Critical Care Medicine; FAMILY PHYSICIAN Family Medicine
PROC: B24BZZ4 Ultrasonography of Heart with Aorta, Transesophageal (ICD-10-PCS; 2024-10-16)
PROC: 02L70CK Occlusion of Left Atrial Appendage with Extraluminal Device, Open Approach (ICD-10-PCS; 2024-10-16)
PROC: 5A1221Z Performance of Cardiac Output, Continuous (ICD-10-PCS; 2024-10-16)
PROC: 02UG0JZ Supplement Mitral Valve with Synthetic Substitute, Open Approach (ICD-10-PCS; 2024-10-16)
DX: I34.0 Nonrheumatic mitral (valve) insufficiency (principal); D62 Acute posthemorrhagic anemia; J98.11 Atelectasis; E87.1 Hypo-osmolality and hyponatremia; N17.9 Acute kidney failure, unspecified; E78.00 Pure hypercholesterolemia, unspecified; E03.9 Hypothyroidism, unspecified; I89.0 Lymphedema, not elsewhere classified; I10 Essential (primary) hypertension; I25.10 Atherosclerotic heart disease of native coronary artery without angina pectoris; E87.70 Fluid overload, unspecified; E86.1 Hypovolemia; R73.03 Prediabetes; I65.21 Occlusion and stenosis of right carotid artery; I73.9 Peripheral vascular disease, unspecified; I95.81 Postprocedural hypotension; M85.80 Other specified disorders of bone density and structure, unspecified site; Z79.82 Long term (current) use of aspirin; Z79.899 Other long term (current) drug therapy; Z87.891 Personal history of nicotine dependence; Z82.49 Family history of ischemic heart disease and other diseases of the circulatory system
CPT/HCPCS: 93308; 36415; 71045; 71046; 80048; 80053; 81003; 82248; 82330; 82565; 82805; 82810; 82947; 82962; 83036; 83735; 84132; 84302; 84520; 85014; 85018; 85025; 85027; 85049; 85610; 85730; 86803; 86850; 86900; 86901; 86902; 86920; 86922; 87070; 93005; 93312; 93320; 93321; 93325; 94002; J2916; P9045

== ENCOUNTER → 2024-11-30 10:45 | Outpatient (REF) | payer MEDICARE, OTHER, SELFPAY | LOC: RCS 10:45 | PROVIDERS: ATTENDING PHYSICIAN Nurse Practitioner; FAMILY PHYSICIAN Family Medicine | DX: E78.5 Hyperlipidemia, unspecified (principal); Z98.890 Other specified postprocedural states; R00.0 Tachycardia, unspecified | CPT/HCPCS: 93225; 93226 ==

== ENCOUNTER → 2024-12-07 10:11 | Outpatient (REF) | payer MEDICARE, OTHER, SELFPAY | LOC: HWRCS 10:11 | PROVIDERS: ATTENDING PHYSICIAN Nurse Practitioner; FAMILY PHYSICIAN Family Medicine | DX: E78.5 Hyperlipidemia, unspecified (principal); Z98.890 Other specified postprocedural states; R00.0 Tachycardia, unspecified | CPT/HCPCS: 93306 ==

== ENCOUNTER 2024-12-28 14:59 | Outpatient (RCR) | payer MEDICARE, OTHER, SELFPAY | END 2024-12-28 23:59 | disposition home or self-care (01) | LOC: CRHB 14:59 | PROVIDERS: ATTENDING PHYSICIAN Internal Medicine | DX: Z95.4 Presence of other heart-valve replacement (principal) | CPT/HCPCS: G0422; G0423 ==

== ENCOUNTER 2025-01-25 15:21 | Outpatient (RCR) | payer MEDICARE, OTHER, SELFPAY | END 2025-01-25 23:59 | disposition home or self-care (01) | LOC: CRHB 15:21 | PROVIDERS: ATTENDING PHYSICIAN Internal Medicine | DX: Z95.4 Presence of other heart-valve replacement; I21.4 Non-ST elevation (NSTEMI) myocardial infarction | CPT/HCPCS: G0422; G0423 ==

== ENCOUNTER 2025-02-25 15:21 | Outpatient (RCR) | payer MEDICARE, OTHER, SELFPAY ==
[2025-02-12 11:47] LABS: HDL Cholesterol 85 mg/dl; LDL Cholesterol, Calculated 72 mg/dl; Total Cholesterol 174 mg/dl (50-199); Triglyceride 87 mg/dl (10-149); Very Low Density Lipoprotein 17 mg/dl (0-30)
== END 2025-02-25 23:59 | disposition home or self-care (01) ==
LOC: CRHB 15:21
PROVIDERS: ATTENDING PHYSICIAN Internal Medicine; FAMILY PHYSICIAN Family Medicine
DX: Z95.4 Presence of other heart-valve replacement (principal)
CPT/HCPCS: 36415; 80061; G0422; G0423

== ENCOUNTER 2025-03-05 13:00 | Outpatient (RCR) | payer MEDICARE, OTHER, SELFPAY | END 2025-03-05 23:59 | disposition home or self-care (01) | LOC: CRHB 13:00 | PROVIDERS: ATTENDING PHYSICIAN Internal Medicine; FAMILY PHYSICIAN Family Medicine | DX: Z95.4 Presence of other heart-valve replacement (principal) | CPT/HCPCS: G0422; G0423 ==

== ENCOUNTER → 2025-05-02 11:00 | Outpatient (REF) | payer MEDICARE, OTHER, SELFPAY | LOC: HWRCS 11:00 | PROVIDERS: ATTENDING PHYSICIAN Thoracic Surgery (Cardiothoracic Vascular Surgery); FAMILY PHYSICIAN Family Medicine | DX: Z98.890 Other specified postprocedural states (principal); Z01.810 Encounter for preprocedural cardiovascular examination | CPT/HCPCS: 93306 ==